=== PATIENT | female | born 1940 | race Caucasian/White ===

== ENCOUNTER 2021-09-05 11:03 | Inpatient (IN) | payer MEDICARE ==
--- NOTE | 2021-09-05 12:36 | XR ---
EXAMINATION TYPE: XR shoulder complete RT DATE OF EXAM: 09/05/2021 CLINICAL HISTORY: Pain after injury. TECHNIQUE: Three views of the right shoulder are obtained. COMPARISON: None. FINDINGS: Osseous structures are demineralized. There is no acute fracture/dislocation evident in the right shoulder. Moderate narrowing and spurring at the acromioclavicular joint. Glenohumeral joint i s preserved. The visualized ribs are intact . IMPRESSION: As above.
[2021-09-05] MEDS ORDERED: KETAMINE 50 MG/ML 10 ML VIAL IM ONE (14:36)
--- NOTE | 2021-09-05 14:38 | ED ---
General Adult HPI - General Chief complaint: Extremity Problem,Nontraumatic Stated complaint: R Shoulder pain Time Seen by Provider: 09/05/21 14:17 Source: patient, family, RN notes reviewed Mode of arrival: ambulatory Limitations: no limitations - History of Present Illness Initial comments: Patient is a pleasant 81-year-old female presenting to the emergency Department with right shoulder pain. Onset of symptoms was earlier this morning. Discomfort has been significant since that time. There was mild improvement with positioning with x-ray. Patient does have history of similar symptoms previously and have it relocated around a week ago. Discomfort greatly increases with any movement. No known trauma. No other area of concern. - Related Data Home Medications Medication Instructions Recorded Confirmed Acetaminophen Tab [Tylenol Tab] 500 mg PO Q6HR PRN 09/05/21 09/05/21 Enoxaparin [Lovenox] 100 mg SQ BID 09/05/21 09/05/21 Isosorbide Mononitrate ER [Imdur] 30 mg PO DAILY 09/05/21 09/05/21 Metoprolol Tartrate [Lopressor] 100 mg PO BID 09/05/21 09/05/21 Spironolactone [Aldactone] 12.5 mg PO DAILY 09/05/21 09/05/21 Allergies Allergy/AdvReac Type Severity Reaction Status Date / Time allopurinol Allergy Anaphylaxis Verified 09/05/21 15:59 amoxicillin [From Amoxil] Allergy Anaphylaxis Verified 09/05/21 15:59 aspirin Allergy Anaphylaxis Verified 09/05/21 15:59 ciprofloxacin [From Cipro] Allergy Anaphylaxis Verified 09/05/21 15:59 clonidine Allergy Anaphylaxis Verified 09/05/21 15:59 codeine Allergy Anaphylaxis Verified 09/05/21 15:59 hydrocodone [From [place]] Allergy Chest Pain Verified 09/05/21 15:59 hydromorphone [From Dilaudid] Allergy Anaphylaxis Verified 09/05/21 15:59 morphine Allergy Anaphylaxis Verified 09/05/21 15:59 propoxyphene Allergy Anaphylaxis Verified 09/05/21 15:59 [From Darvocet-N] Review of Systems ROS Statement: Those systems with pertinent positive or pertinent negative responses have been documented in the HPI. ROS Other: All systems not noted in ROS Statement are negative. Constitutional: Denies: fever Eyes: Denies: eye pain ENT: Denies: ear pain Respiratory: Denies: cough Cardiovascular: Denies: chest pain Endocrine: Denies: fatigue Gastrointestinal: Denies: abdominal pain Genitourinary: Denies: dysuria Musculoskeletal: Reports: as per HPI Skin: Denies: rash Neurological: Denies: weakness Past Medical History Additional Past Medical History / Comment(s): Lupus/ Leukemia History of Any Multi-Drug Resistant Organisms: None Reported Past Surgical History: Orthopedic Surgery Additional Past Surgical History / Comment(s): Shoulder dislocation Past Psychological History: No Psychological Hx Reported Smoking Status: Never smoker Past Alcohol Use History: None Reported Past Drug Use History: None Reported General Exam Limitations: no limitations General appearance: alert Head exam: Present: normocephalic Eye exam: Present: normal appearance Neck exam: Present: normal inspection. Absent: tenderness Respiratory exam: Present: normal lung sounds bilaterally Cardiovascular Exam: Present: regular rate, normal rhythm Expanded Peripheral pulses: 2+: Radial (R) GI/Abdominal exam: Present: soft. Absent: tenderness Extremities exam: Present: tenderness (Mild tenderness right anterior shoulder.), normal capillary refill, other (Distal extremity is neurovascular intact) Back exam: Present: normal inspection. Absent: tenderness Neurological exam: Present: alert. Absent: motor sensory deficit Psychiatric exam: Present: normal affect, normal mood Skin exam: Present: normal color Course Vital Signs 09/05/21 09/05/21 09/05/21 11:51 15:07 16:45 Temperature 97.6 F Pulse Rate 68 77 60 Respiratory 24 16 Rate Blood Pressure 196/98 198/94 O2 Sat by Pulse 96 94 L 92 L Oximetry 09/05/21 09/05/21 18:10 19:43 Temperature Pulse Rate 88 65 Respiratory 16 18 Rate Blood Pressure 190/90 199/93 O2 Sat by Pulse 98 97 Oximetry - Reevaluation(s) Reevaluation #1: 09/05/21 18:11 Case was discussed with practitioner [facility] who did review films and did discuss case with attending physician. He does not feel there is any emergent need for orthopedic intervention. 09/05/21 20:34 Patient reevaluated several times. Patient still complains of discomfort and nausea. Case discussed with Dr. Crawley who does agree to admit his patient for observation with consult with orthopedics and pain medicine Medical Decision Making - Radiology Data Radiology results: report reviewed, image reviewed Disposition Clinical Impression: Intractable pain Disposition: ADMITTED IP TO THIS HOSP Is patient prescribed a controlled substance at d/c from ED?: No Referrals: Christopher Crawley MD [Primary Care Provider] - 1-2 days Time of Disposition: 20:35
--- NOTE | 2021-09-05 16:06 | CT ---
EXAMINATION TYPE: CT shoulder RT wo con DATE OF EXAM: 09/05/2021 COMPARISON: Right shoulder x-ray earlier today HISTORY: right shoulder pain CT DLP: 981.5 mGycm Automated exposure control for dose reduction was used. FINDINGS: No acute fracture or dislocation in the right shoulder. Moderate narrowing and spurring at the acromi oclavicular joint redemonstrated. Nonspecific sclerotic focus in the distal clavicle coronal image 54 favors benign bone island. Mild to moderate narrowing involving the inferior posterior aspect of the glenohumeral joint with mild spurring. Rotator cuff muscle bulk is preserved. Visualized adjacent ribs are intact. Mild parenchymal fibrotic changes in the periphery are seen. Par tial visualization of mild fat stranding anterior proximal humeral level could reflect soft tissue in fection or possible soft tissue ill-defined hematoma if there has been recent trauma axial image 54 f or reference. Correlate clinically. IMPRESSION: As above.
[2021-09-05] MEDS ORDERED: ONDANSETRON 4 MG/2 ML VIAL IM STA (18:22)
[2021-09-05] MEDS ORDERED: ORPHENADRINE 30 MG/ML 2 ML VIAL IM STA (19:24)
[2021-09-05] MEDS ORDERED: ACETAMINOPHEN TAB 325 MG TAB PO PRN (20:36)
[2021-09-05] MEDS ORDERED: NALOXONE 0.4 MG/ML 1 ML VIAL IV PRN (20:36)
[2021-09-05] MEDS ORDERED: ORPHENADRINE 30 MG/ML 2 ML VIAL IVP PRN (21:00)
[2021-09-05 21:38] LABS: Basophils # (A) 0.2 k/uL (0-0.2); Basophils % (A) 2 %; Eosinophils # (A) 0.1 k/uL (0-0.7); Eosinophils % (A) 1 %; HCT 51.1 % (34.0-46.0); HGB 16.6 gm/dL (11.4-16.0); Lymphocytes # (A) 0.9 k/uL (1.0-4.8); Lymphocytes % (A) 10 %; MCH 29.5 pg (25.0-35.0); MCHC 32.5 g/dL (31.0-37.0); MCV 90.7 fL (80.0-100.0); Mean Platelet Volume 8.6; Monocytes # (A) 0.4 k/uL (0-1.0); Monocytes % (A) 4 %; Neutrophils # (A) 7.7 k/uL (1.3-7.7); Neutrophils % (A) 82 %; Platelet Count 332 k/uL (150-450); RBC 5.63 m/uL (3.80-5.40); RDW 15.8 % (11.5-15.5); WBC 9.4 k/uL (3.8-10.6)
[2021-09-05] MEDS ORDERED: diphenhydrAMINE 25 MG CAP PO STA (21:41)
[2021-09-05] MEDS ORDERED: ISOSORBIDE MONONITRATE ER 30 MG TAB.ER.24H PO SCH (21:44)
[2021-09-05 21:52] LABS: ALT 28 U/L (4-34); African American GFR (CKD) >90 (>60 ml/min/1.73 sqM); Anion Gap 9 mmol/L; Blood Urea Nitrogen 12 mg/dL (7-17); Carbon Dioxide 23 mmol/L (22-30); Chloride 104 mmol/L (98-107); Glucose 115 mg/dL (74-99); Non-African American GFR(CKD) 82 (>60 ml/min/1.73 sqM); Sodium 136 mmol/L (137-145)
[2021-09-05 21:53] LABS: INR 1.1 (<1.2); Prothrombin Time 11.3 sec (9.0-12.0)
[2021-09-05 21:55] LABS: AST 39 U/L (14-36); Alkaline Phosphatase 62 U/L (38-126); Potassium 5.6 mmol/L (3.5-5.1); Total Bilirubin 1.5 mg/dL (0.2-1.3); Total Protein 7.7 g/dL (6.3-8.2)
[2021-09-05] MEDS: FAMOTIDINE 20 MG TAB PO SCH (22:15)
[2021-09-05] MEDS: METOPROLOL TARTRATE 50 MG TAB PO SCH (22:15)
[2021-09-05] MEDS ORDERED: ACETAMINOPHEN TAB 500 MG TAB PO PRN (22:23)
[2021-09-06] MEDS: ONDANSETRON 4 MG/2 ML VIAL IVP PRN ×3 (02:43→17:11)
[2021-09-06] MEDS: ENOXAPARIN 100 MG/ML SYRINGE SQ SCH ×2 (08:23→20:59)
[2021-09-06] MEDS ORDERED: SPIRONOLACTONE 25 MG TAB PO SCH (09:00)
[2021-09-06] MEDS: SODIUM CHLORIDE 0.9% 1,000 ML IV SCH ×2 (09:10→21:05)
[2021-09-06] MEDS: METOPROLOL TARTRATE 50 MG TAB PO SCH ×2 (09:11→21:00)
[2021-09-06] MEDS: ISOSORBIDE MONONITRATE ER 30 MG TAB.ER.24H PO SCH (09:11)
[2021-09-06] MEDS: FAMOTIDINE 20 MG TAB PO SCH ×2 (09:11→21:00)
[2021-09-06] MEDS: LIDOCAINE 5% PATCH TOPICAL SCH (09:12)
[2021-09-06] MEDS ORDERED: KETOROLAC 15 MG/ML 1 ML VIAL IVP PRN (10:24)
--- NOTE | 2021-09-06 10:24 | P.HPIM ---
History of Present Illness H&P Date: 09/06/21 HISTORY OF PRESENT ILLNESS This is an 81-year-old female patient of Dr. 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 Patient states that she was sitting watching TV and had sudden onset of pain in her right shoulder that started on Saturday. Patient denies having any recent falls or injuries and no repetitive movement of the right shoulder. She denies any fever or chills. She went to [facility] was told she had a dislocation and they put the shoulder back into place and gave her a sling and instructed her to follow-up with Dr. Stuart in [place]. That time she also developed nausea and vomiting and pain across her kidneys. She also mentions concern that she felt distorted. She states the pain in her right shoulder was not any better and she ended up coming into [facility] emergency center for evaluation. She was found to be afebrile, heart rate 68, blood pressure 196/98, pulse ox 96% on room air. WBC 9.4, hemoglobin 16.6 and platelet count 332. INR 1.1. Sodium 136, potassium 5.6, chloride 104, CO2 23, BUN 12 and creatinine 0.66. Glucose 115. Calcium 9. Total bilirubin 1.5, AST 39, ALT 28, and phosphatase 62. Total protein 7.7 and albumin 4.0. Right shoulder x-ray shows no acute fracture or dislocation. Moderate narrowing and spurring at the acromial clavicle joint. CAT scan of the right shoulder revealed no acute fracture or dislocation. Moderate narrowing and spurring at the acromioclavicular joint. Mild to moderate narrowing involving the inferior posterior aspect of the glenohumeral joint with mild spurring. Rotator cuff muscle bulk is preserved. Partial visualization of mild fat stranding anterior proximal humeral level could reflect soft tissue infection or possible soft tissue ill-defined hematoma if there is been recent trauma. Patient was placed on the observation unit and consults for orthopedics and pain management. REVIEW OF SYSTEMS Constitutional: No fever, no chills, no night sweats. No weight change. No weakness, fatigue or lethargy. No daytime sleepiness. EENT: No headache. No blurred vision or double vision, no loss of vision. No loss of Hearing, no ringing in the ears, no dizziness. No nasal drainage or congestion. No epistaxis. No sore throat. Lungs: No shortness of breath, cough, no sputum production. No wheezing. Cardiovascular: No chest pain, no lower extremity edema. No palpitations. No paroxysmal nocturnal dyspnea. No orthopnea. No lightheadedness or dizziness. No syncopal episodes. Abdominal: No abdominal pain. Reports nausea, reports vomiting. No diarrhea. No constipation. No bloody or tarry stools. No loss of appetite. Genitourinary: No dysuria, increased frequency, urgency. No urinary retention. Reports pain across lower back area. Musculoskeletal: No myalgias. No muscle weakness, no gait dysfunction, no frequent falls. No back pain. No neck pain. Reports right shoulder pain. Integumentary: No wounds, no lesions. No rash or pruritus. No unusual bruising. No change in hair or nails. Neurologic: No aphasia. No facial droop. No change in mentation. No head injury. No headache. No paralysis. No paresthesia. Psychiatric: No depression. No anxiety. No mood swings. Endocrine: No abnormal blood sugars. No weight change. No excessive sweating or thirst. No cold intolerance. SOCIAL HISTORY Patient is a lifelong nonsmoker, no alcohol use, no marijuana or illicit drug use. She lives at home with her of 60 years. FAMILY HISTORY Mother at age 78 with history of Parkinson's. Father at age 63 from pneumonia. Patient has 3 siblings. One sister has from leukemia and one sister comes sudden infant syndrome. Patient has one brother is living at age 84. Patient has 3 children one daughter has passed from ovarian cancer and one son living has COPD.. PHYSICAL EXAMINATION Gen: This is an 81-year-old female. Patient is resting in bed appears to be uncomfortable due to shoulder pain and complaints of nausea. HEENT: Head is atraumatic, normocephalic. Pupils equal, round. Sclerae is an icteric. NECK: Supple. No JVD. No lymphadenopathy. No thyromegaly. LUNGS: Clear to auscultation. No wheezes or rhonchi. No intercostal retractions. HEART: Regular rate and rhythm. No murmur. ABDOMEN: Soft. Bowel sounds are present. No masses. No tenderness. EXTREMITIES: No pedal edema. No calf tenderness. Sling in place to the right upper extremity. NEUROLOGICAL: Patient is awake, alert and oriented x3. Cranial nerves 2 through 12 are grossly intact. ASSESSMENT AND PLAN 1. Right shoulder pain with reported dislocation. Orthopedic consult, continue sling, PT and OT evaluations, lidocaine patch to the right shoulder. 2. Intractable nausea and vomiting of unclear etiology. Continue Zofran 4 mg IV push every 8 hours, start patient on IV fluids or 0.9 normal saline at 75 mL per hour, discontinue Aldactone. 3. Flank/lumbar pain. Obtain urinalysis and x-ray of the lumbar spine. 4. History of PE and DVT. Continue patient on Lovenox 100 mg subcu twice daily. 5. Hypertension. Continue Lopressor 100 mg twice daily. 6. Coronary artery disease. Continue Imdur 30 mg daily and Lopressor. 7. Gastroesophageal reflux disease and GI prophylaxis. Continue Pepcid 20 mg twice daily. 8. Polycythemia, stable. 9. Multiple drug ALLERGIES. Cautious use of new medications. 10. DVT prophylaxis. Lovenox. Patient placed on the observation unit. DISCHARGE PLAN Home. Impression and plan of care have been directed as dictated by the signing physician. Angelina Wang nurse practitioner acting as scribe for signing physic rashida. Past Medical History Additional Past Medical History / Comment(s): Lupus/ Leukemia History of Any Multi-Drug Resistant Organisms: None Reported Past Surgical History: Orthopedic Surgery Additional Past Surgical History / Comment(s): Shoulder dislocation Past Psychological History: No Psychological Hx Reported Smoking Status: Never smoker Past Alcohol Use History: None Reported Past Drug Use History: None Reported Medications and Allergies Home Medications Medication Instructions Recorded Confirmed Type Acetaminophen Tab [Tylenol Tab] 500 mg PO Q6HR PRN 09/05/21 09/05/21 History Enoxaparin [Lovenox] 100 mg SQ BID 09/05/21 09/05/21 History Isosorbide Mononitrate ER [Imdur] 30 mg PO DAILY 09/05/21 09/05/21 History Metoprolol Tartrate [Lopressor] 100 mg PO BID 09/05/21 09/05/21 History Spironolactone [Aldactone] 12.5 mg PO DAILY 09/05/21 09/05/21 History Allergies Allergy/AdvReac Type Severity Reaction Status Date / Time allopurinol Allergy Anaphylaxis Verified 09/05/21 15:59 amoxicillin [From Amoxil] Allergy Anaphylaxis Verified 09/05/21 15:59 aspirin Allergy Anaphylaxis Verified 09/05/21 15:59 ciprofloxacin [From Cipro] Allergy Anaphylaxis Verified 09/05/21 15:59 clonidine Allergy Anaphylaxis Verified 09/05/21 15:59 codeine Allergy Anaphylaxis Verified 09/05/21 15:59 hydrocodone [From [place]] Allergy Chest Pain Verified 09/05/21 15:59 hydromorphone [From Dilaudid] Allergy Anaphylaxis Verified 09/05/21 15:59 morphine Allergy Anaphylaxis Verified 09/05/21 15:59 propoxyphene Allergy Anaphylaxis Verified 09/05/21 15:59 [From Darvocet-N] Physical Exam Vitals: Vital Signs Temp Pulse Pulse Resp BP BP Pulse Ox 09/06/21 06:58 98.3 F 68 18 178/84 94 L 09/06/21 03:10 98.3 F 58 L 18 155/69 92 L 09/05/21 23:53 97.3 F L 62 18 170/77 94 L 09/05/21 23:03 61 14 152/76 09/05/21 21:28 67 18 209/98 95 09/05/21 19:43 65 18 199/93 97 09/05/21 18:10 88 16 190/90 98 09/05/21 16:45 60 16 198/94 92 L 09/05/21 15:07 77 94 L 09/05/21 11:51 97.6 F 68 24 196/98 96 Intake and Output 09/05/21 09/06/21 09/06/21 22:59 06:59 14:59 Other: # Voids 2 1 Weight 97.522 kg Results CBC & Chem 7: 09/05/21 21:31 09/05/21 21:31 Labs: Abnormal Lab Results - Last 24 Hours (Table) 09/05/21 09/05/21 Range/Units 21:31 21:31 RBC 5.63 H (3.80-5.40) m/uL Hgb 16.6 H (11.4-16.0) gm/dL Hct 51.1 H (34.0-46.0) % RDW 15.8 H (11.5-15.5) % Lymphocytes # 0.9 L (1.0-4.8) k/uL Sodium 136 L (137-145) mmol/L Potassium 5.6 H (3.5-5.1) mmol/L Glucose 115 H (74-99) mg/dL Total Bilirubin 1.5 H (0.2-1.3) mg/dL AST 39 H (14-36) U/L
[2021-09-06] MEDS ORDERED: diphenhydrAMINE 50 MG/ML 1 ML VIAL IVP PRN (10:25)
--- NOTE | 2021-09-06 10:29 | XR ---
Lumbar spine HISTORY: Pain 3 views of the lumbar spine, no comparisons There are vascular calcifications noted within the aorta iliac distribution. Possible splenic artery calcifications or calcified diverticula noted incidentally. Lumbar vertebral bodies show preserved height. Bone mineralization is reduced. There is an anterolist hesis grade 1 L4-5 with associated loss of disc height and vacuum phenomenon. Loss of disc height als o present L5-S1, there is multilevel spondylosis. Sclerosis in the posterior elements is consistent w ith facet arthropathy. IMPRESSION: Degenerative disc disease, osteopenia, facet arthropathy and additional findings above.
[2021-09-06 11:56] LABS: Appearance,Urine Clear (Clear); Bacteria,Urine Rare /hpf; Bilirubin,Urine Negative (Negative); Blood,Urine Trace (Negative); Color,Urine Yellow; Glucose,Urine (UA) Negative (Negative); Ketones,Urine Trace (Negative); Leukocyte Esterase,Urine Small (Negative); Mucus,Urine Rare /hpf; Nitrite,Urine Negative (Negative); PH, Urine 5.5 (5.0-8.0); Protein,Urine 1+ (Negative); RBC,Urine 3 /hpf (0-5); Specific Gravity,Urine 1.024 (1.001-1.035); Squamous Epithelial Cell,Urine <1 /hpf (0-4); Urobilinogen,Urine <2.0 mg/dL (<2.0); WBC,Urine 12 /hpf (0-5)
[2021-09-06] MEDS ORDERED: SCOPOLAMINE 1 MG/72 HR PATCH TRANSDERM SCH (12:15)
[2021-09-06] MEDS ORDERED: tiZANidine 4 MG TAB PO PRN (14:56)
--- NOTE | 2021-09-06 16:04 | P.CNOR ---
History of Present Illness - [facility] Consult date: 09/06/21 Consult reason: joint pain History of present illness: Patient seen at bedside this morning in consultation for right shoulder pain. She states that she developed right shoulder pain last Saturday while watching TV. She denies injury or trauma. She states she went to [facility] and they reduced her "dislocated" shoulder. She was to f/u in office but returned to the ED yesterday with continued pain. Xrays and CT done through ED showed no dislocation or fracture. She denies numbness or radicular symptoms. She has no other current complaints Review of Systems All systems: negative Constitutional: Denies chills, Denies fever Eyes: denies blurred vision, denies pain Ears, nose, mouth and throat: Denies headache, Denies sore throat Cardiovascular: Denies chest pain, Denies shortness of breath Respiratory: Denies cough Gastrointestinal: Denies abdominal pain, Denies diarrhea, Denies nausea, Denies vomiting Genitourinary: Denies dysuria, Denies hematuria Musculoskeletal: Denies myalgias Integumentary: Denies pruritus, Denies rash Neurological: Denies numbness, Denies weakness Psychiatric: Denies anxiety, Denies depression Endocrine: Denies fatigue, Denies weight change Past Medical History Additional Past Medical History / Comment(s): Lupus/ Leukemia History of Any Multi-Drug Resistant Organisms: None Reported Past Surgical History: Orthopedic Surgery Additional Past Surgical History / Comment(s): Shoulder dislocation Past Psychological History: No Psychological Hx Reported Smoking Status: Never smoker Past Alcohol Use History: None Reported Past Drug Use History: None Reported Medications and Allergies Home Medications Medication Instructions Recorded Confirmed Type Acetaminophen Tab [Tylenol Tab] 500 mg PO Q6HR PRN 09/05/21 09/05/21 History Enoxaparin [Lovenox] 100 mg SQ BID 09/05/21 09/05/21 History Isosorbide Mononitrate ER [Imdur] 30 mg PO DAILY 09/05/21 09/05/21 History Metoprolol Tartrate [Lopressor] 100 mg PO BID 09/05/21 09/05/21 History Spironolactone [Aldactone] 12.5 mg PO DAILY 09/05/21 09/05/21 History Allergies Allergy/AdvReac Type Severity Reaction Status Date / Time allopurinol Allergy Anaphylaxis Verified 09/05/21 15:59 amoxicillin [From Amoxil] Allergy Anaphylaxis Verified 09/05/21 15:59 aspirin Allergy Anaphylaxis Verified 09/05/21 15:59 ciprofloxacin [From Cipro] Allergy Anaphylaxis Verified 09/05/21 15:59 clonidine Allergy Anaphylaxis Verified 09/05/21 15:59 codeine Allergy Anaphylaxis Verified 09/05/21 15:59 hydrocodone [From [place]] Allergy Chest Pain Verified 09/05/21 15:59 hydromorphone [From Dilaudid] Allergy Anaphylaxis Verified 09/05/21 15:59 morphine Allergy Anaphylaxis Verified 09/05/21 15:59 propoxyphene Allergy Anaphylaxis Verified 09/05/21 15:59 [From Darvocet-N] Physical Examination Inspection of right shoulder shows no deformity or wounds. There is echymoses at the right bicep. The shoulder is not hot or red. She is tender at the bicipital groove and biceps. She has mild pain with passive ROM of the shoulder in all marks. She has pain with resisted flexion of the right bicep. Neurovascular status is intact throughout right upper extremity with motor and sensation. 2+ radial pulse and less than 2 sec cap refill present. Results - Labs Labs: Abnormal Lab Results - Last 24 Hours (Table) 09/05/21 09/05/21 09/06/21 Range/Units 21:31 21:31 09:45 RBC 5.63 H (3.80-5.40) m/uL Hgb 16.6 H (11.4-16.0) gm/dL Hct 51.1 H (34.0-46.0) % RDW 15.8 H (11.5-15.5) % Lymphocytes # 0.9 L (1.0-4.8) k/uL Sodium 136 L (137-145) mmol/L Potassium 5.6 H (3.5-5.1) mmol/L Glucose 115 H (74-99) mg/dL Total Bilirubin 1.5 H (0.2-1.3) mg/dL AST 39 H (14-36) U/L Urine Protein 1+ H (Negative) Urine Ketones Trace H (Negative) Urine Blood Trace H (Negative) Ur Leukocyte Esterase Small H (Negative) Urine WBC 12 H (0-5) /hpf Urine Bacteria Rare H (None) /hpf Urine Mucus Rare H (None) /hpf H & H 04/26/22 Range/Units 21:31 Hgb 16.6 H (11.4-16.0) gm/dL Hct 51.1 H (34.0-46.0) % Coagulation 09/05/21 Range/Units 21:31 INR 1.1 (<1.2) Result Diagrams: 09/05/21 21:31 09/05/21 21:31 - Diagnostic results Shoulder x-ray: report reviewed, image reviewed Shoulder CT: report reviewed, image reviewed Assessment and Plan (1) Shoulder pain Narrative/Plan: She likely has a proximal bicep tendon tear and shoulder arthropathy. No plans for immediate surgical intervention. She may use sling prn for comfort. We will order MRI of right shoulder. Ice to shoulder prn and pain management. She may f/u as outpatient and will continue to follow. Current Visit: Yes Status: Acute Priority: Medium Code(s): M25.519 - PAIN IN UNSPECIFIED SHOULDER SNOMED Code(s): 53847534 (2) Biceps tendon tear Current Visit: Yes Status: Acute Priority: Medium Code(s): S46.219A - STRAIN OF MUSC/FASC/TEND PRT BICEPS, UNSP ARM, INIT SNOMED Code(s): 261493282 Time with Patient: Less than 30
[2021-09-07] MEDS: ENOXAPARIN 100 MG/ML SYRINGE SQ SCH (09:13)
[2021-09-07] MEDS: LIDOCAINE 5% PATCH TOPICAL SCH (09:14)
[2021-09-07] MEDS: ONDANSETRON 4 MG/2 ML VIAL IVP PRN (09:15)
[2021-09-07] MEDS: FAMOTIDINE 20 MG TAB PO SCH (09:15)
[2021-09-07] MEDS: METOPROLOL TARTRATE 50 MG TAB PO SCH (09:16)
[2021-09-07] MEDS: ISOSORBIDE MONONITRATE ER 30 MG TAB.ER.24H PO SCH (09:16)
[2021-09-07 12:03] LABS: ALT 22 U/L (4-34); AST 30 U/L (14-36); African American GFR (CKD) 83 (>60 ml/min/1.73 sqM); Albumin 3.6 g/dL (3.5-5.0); Albumin/Globulin Ratio 1.1; Alkaline Phosphatase 56 U/L (38-126); Anion Gap 7 mmol/L; Blood Urea Nitrogen 12 mg/dL (7-17); Calcium 8.4 mg/dL (8.4-10.2); Carbon Dioxide 22 mmol/L (22-30); Chloride 104 mmol/L (98-107); Globulin 3.4 g/dL; Glucose 103 mg/dL (74-99); Non-African American GFR(CKD) 72 (>60 ml/min/1.73 sqM); Sodium 133 mmol/L (137-145); Total Bilirubin 1.4 mg/dL (0.2-1.3)
[2021-09-07 12:04] LABS: Potassium 4.7 mmol/L (3.5-5.1)
--- NOTE | 2021-09-07 12:26 | MR ---
EXAMINATION TYPE: MR shoulder RT wo con DATE OF EXAM: 09/07/2021 COMPARISON: CT and plain film shoulder 09/05/2021 HISTORY: Right shoulder pain, bruising, no injury TECHNIQUE: Multiplanar, multisequence imaging of the right shoulder is performed without contrast. FINDINGS: Rotator Cuff: Partial full-thickness tear suspected of the supraspinatus tendon, sagittal image 25, c oronal image #15 Acromioclavicular Joint: Arthropathy changes present. There is mass effect on the musculotendinous ju nction of supraspinatus, distal acromial spur noted Glenohumeral Joint: Intact Labrum: The labrum appears grossly intact given limitation of non-arthrogram study. Biceps Tendon: The long head of biceps is in normal location within bicipital groove. Bone marrow signal: Extensive marrow signal change suggestive of edema is noted. Other: Diffuse increased signal in T2-weighted sequences involving the subcutaneous tissues, musculat ure about the right shoulder. Crescentic area of intermediate signal on T1, low signal on T2 is prese nt anterior to the humeral head measuring approximately 3.2 cm in cephalad to caudal dimension by 1 c m in AP dimension by 4 cm in transverse dimension. There is a small joint effusion present. IMPRESSION: Findings may be posttraumatic with focal hematoma, soft tissue edema, partial tear the rotator cuff m ay be chronic, correlate for impingement. Infection not excluded, correlate, follow-up as indicated
[2021-09-07 13:36] VITALS: BP 195/81; PULSE 61; RESP 14; TEMP 97.5
--- NOTE | 2021-09-07 14:20 | P.DS ---
Providers Date of admission: 09/07/21 09:25 Expected date of discharge: 09/07/21 Attending physician: Christopher Crawley Consults: 09/05/21 20:36 Consult Physician Routine Consulting Provider: Edith Emanuel Consult Reason/Comments: Intractable shoulder pain. Possible injections Do you want consulting provider notified?: Yes Consult Physician Routine Consulting Provider: Hayden Rodriguez Consult Reason/Comments: Intractable shoulder pain Do you want consulting provider notified?: Yes Primary care physician: Christopher Misb[facility] Course: HISTORY OF PRESENT ILLNESS This is an 81-year-old female patient of Dr. 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 Patient states that she was sitting watching TV and had sudden onset of pain in her right shoulder that started on Saturday. Patient denies having any recent falls or injuries and no repetitive movement of the right shoulder. She denies any fever or chills. She went to [facility] was told she had a dislocation and they put the shoulder back into place and gave her a sling and instructed her to follow-up with Dr. Stuart in [place]. That time she also developed nausea and vomiting and pain across her kidneys. She also mentions concern that she felt distorted. She states the pain in her right shoulder was not any better and she ended up coming into [facility] emergency center for evaluation. She was found to be afebrile, heart rate 68, blood pressure 196/98, pulse ox 96% on room air. WBC 9.4, hemoglobin 16.6 and platelet count 332. INR 1.1. Sodium 136, potassium 5.6, chloride 104, CO2 23, BUN 12 and creatinine 0.66. Glucose 115. Calcium 9. Total bilirubin 1.5, AST 39, ALT 28, and phosphatase 62. Total protein 7.7 and albumin 4.0. Right shoulder x-ray shows no acute fracture or dislocation. Moderate narrowing and spurring at the acromial clavicle joint. CAT scan of the right shoulder revealed no acute fracture or dislocation. Moderate narrowing and spurring at the acromioclavicular joint. Mild to moderate narrowing involving the inferior posterior aspect of the glenohumeral joint with mild spurring. Rotator cuff muscle bulk is preserved. Partial visualization of mild fat stranding anterior proximal humeral level could reflect soft tissue infection or possible soft tissue ill-defined hematoma if there is been recent trauma. Patient was placed on the observation unit and consults for orthopedics and pain management. 09/07: MRI of the right shoulder revealed posttraumatic with focal hematoma, soft tissue edema, partial tear of the rotator cuff may be chronic, correlate for impingement. Infection not excluded. Patient has been seen by orthopedics with recommendations with no plan for stress as surgical intervention, maintain sling for comfort ice and follow-up outpatient. Lumbar x-ray revealed degenerative disc disease, osteopenia, facet arthropathy. Patient is afebrile, heart rate 61, blood pressure 195/81, pulse ox 94% on room air. Repeat blood work reveals sodium 133, potassium 4.7, creatinine 0.77. Blood sugar 103. Urine culture is in progress. Patient will be discharged today in stable condition. DISCHARGE DIAGNOSES 1. Right shoulder pain secondary to proximal bicep tendon tear and shoulder arthropathy. 2. Intractable nausea and vomiting of unclear etiology. 3. Flank/lumbar pain secondary to degenerative disc disease. 4. History of PE and DVT. 5. Hypertension. 6. Coronary artery disease. 7. Gastroesophageal reflux disease 8. Polycythemia, stable. 9. Multiple drug ALLERGIES. DISCHARGE PLAN Home with [facility]. Greater than 35 minutes was utilized and coordinating patient's discharge. Impression and plan of care have been directed as dictated by the signing physician. Angelina Wang nurse practitioner acting as scribe for signing physician. Plan - Discharge Summary New Discharge Prescriptions: New Scopolamine 1 mg/72 Hr Patch [TransDerm Scop] 1 patch TRANSDERM Q72H #3 patch tiZANidine [Zanaflex] 4 mg PO TID PRN #30 tab PRN Reason: Muscle Spasticity Lidocaine 5% Patch [Lidoderm 5% Patch] 1 patch TOPICAL DAILY #10 patch Continue Spironolactone [Aldactone] 12.5 mg PO DAILY Metoprolol Tartrate [Lopressor] 100 mg PO BID Isosorbide Mononitrate ER [Imdur] 30 mg PO DAILY Enoxaparin [Lovenox] 100 mg SQ BID Acetaminophen Tab [Tylenol] 500 mg PO Q6HR PRN PRN Reason: Pain Or Fever > 100.5 Discharge Medication List Acetaminophen Tab [Tylenol] 500 mg PO Q6HR PRN 09/05/21 [History] Enoxaparin [Lovenox] 100 mg SQ BID 09/05/21 [History] Isosorbide Mononitrate ER [Imdur] 30 mg PO DAILY 09/05/21 [History] Metoprolol Tartrate [Lopressor] 100 mg PO BID 09/05/21 [History] Spironolactone [Aldactone] 12.5 mg PO DAILY 09/05/21 [History] Lidocaine 5% Patch [Lidoderm 5% Patch] 1 patch TOPICAL DAILY #10 patch 09/07/21 [Rx] Scopolamine 1 mg/72 Hr Patch [TransDerm Scop] 1 patch TRANSDERM Q72H #3 patch 09/07/21 [Rx] tiZANidine [Zanaflex] 4 mg PO TID PRN #30 tab 09/07/21 [Rx] Follow up Appointment(s)/Referral(s): [facility], [NON-STAFF] - 1-2 Days Christopher Crawley MD [Primary Care Provider] - 1-2 days Hayden Rodriguez MD [STAFF PHYSICIAN] - 1 Week Activity/Diet/Wound Care/Special Instructions: Sling prn for comfort rest and ice to shoulder prn F/U in office with Dr. Rodriguez/Giacomo Okeefe PA-C Discharge Disposition: HOME WITH HOME HEALTH SERVICES
== END 2021-09-07 15:33 | disposition home health service (06) | DRG 558 ==
LOC: EC 11:03 → 6NMEDSUR 20:36 → OBSVTOIN 09-07 09:25
PROVIDERS: ADMIT Internal Medicine Geriatric Medicine; ATTEND Internal Medicine Geriatric Medicine
DX: M75.110 Incomplete rotator cuff tear or rupture of unspecified shoulder, not specified as traumatic (principal); M51.36 Other intervertebral disc degeneration, lumbar region; M47.819 Spondylosis without myelopathy or radiculopathy, site unspecified; M85.80 Other specified disorders of bone density and structure, unspecified site; S46.219A Strain of muscle, fascia and tendon of other parts of biceps, unspecified arm, initial encounter; D75.1 Secondary polycythemia; I10 Essential (primary) hypertension; M19.90 Unspecified osteoarthritis, unspecified site; I25.10 Atherosclerotic heart disease of native coronary artery without angina pectoris; K21.9 Gastro-esophageal reflux disease without esophagitis; Z28.310 Unvaccinated for COVID-19; G89.29 Other chronic pain; R11.2 Nausea with vomiting, unspecified; Z80.6 Family history of leukemia; Z79.899 Other long term (current) drug therapy; M32.9 Systemic lupus erythematosus, unspecified; Z85.6 Personal history of leukemia; Z82.0 Family history of epilepsy and other diseases of the nervous system; Z85.42 Personal history of malignant neoplasm of other parts of uterus; Z86.711 Personal history of pulmonary embolism; Z86.718 Personal history of other venous thrombosis and embolism; Z86.73 Personal history of transient ischemic attack (TIA), and cerebral infarction without residual deficits; Z88.6 Allergy status to analgesic agent; Z88.1 Allergy status to other antibiotic agents; Z88.5 Allergy status to narcotic agent; Z88.8 Allergy status to other drugs, medicaments and biological substances; Z83.6 Family history of other diseases of the respiratory system; Z84.82 Family history of sudden infant death syndrome; Z98.890 Other specified postprocedural states; Z79.01 Long term (current) use of anticoagulants
CPT/HCPCS: 72100; 80053; 81001; 85025; 85610; 87086; 96372; 99285

== ENCOUNTER 2023-01-06 08:28 | Emergency (ER) | payer MEDICARE, OTHER ==
--- NOTE | 2023-01-06 09:00 | ED ---
General Adult HPI - General Chief complaint: Head Injury Stated complaint: Fall Time Seen by Provider: 01/06/23 08:32 Source: patient Mode of arrival: EMS Limitations: no limitations - History of Present Illness Initial comments: Dictation was produced using [employer] dictation software. please excuse any grammatical, word or spelling errors. Chief Complaint: 82-year-old female presents to ER after head injury History of Present Illness: Patient is an 82-year-old female she presents to the emergency department after head injury. Patient brought in by EMS states that she struck her head on the corner of a wall. Unknown if there was any loss of consciousness. Son at the bedside states that the event occurred approximately 6:30 PM. Patient is a poor historian. Son reports that patient at baseline is alert and oriented 3-4. EMS states the patient is in 1. Patient takes Lovenox for anticoagulation The ROS documented in this emergency department record has been reviewed and confirmed by me. Those systems with pertinent positive or negative responses have been documented in the HPI. All other systems are other negative and/or noncontributory. - Related Data Home Medications Medication Instructions Recorded Confirmed Acetaminophen Tab [Tylenol] 500 mg PO Q6HR PRN 09/05/21 09/05/21 Enoxaparin [Lovenox] 100 mg SQ BID 09/05/21 09/05/21 Isosorbide Mononitrate ER [Imdur] 30 mg PO DAILY 09/05/21 09/05/21 Metoprolol Tartrate [Lopressor] 100 mg PO BID 09/05/21 09/05/21 Spironolactone [Aldactone] 12.5 mg PO DAILY 09/05/21 09/05/21 Previous Rx's Medication Instructions Recorded Lidocaine 5% Patch [Lidoderm 5% 1 patch TOPICAL DAILY #10 patch 09/07/21 Patch] Scopolamine 1 mg/72 Hr Patch 1 patch TRANSDERM Q72H #3 patch 09/07/21 [TransDerm Scop] tiZANidine [Zanaflex] 4 mg PO TID PRN #30 tab 09/07/21 Allergies Allergy/AdvReac Type Severity Reaction Status Date / Time allopurinol Allergy Anaphylaxis Verified 09/05/21 15:59 amoxicillin [From Amoxil] Allergy Anaphylaxis Verified 09/05/21 15:59 aspirin Allergy Anaphylaxis Verified 09/05/21 15:59 ciprofloxacin [From Cipro] Allergy Anaphylaxis Verified 09/05/21 15:59 clonidine Allergy Anaphylaxis Verified 09/05/21 15:59 codeine Allergy Anaphylaxis Verified 09/05/21 15:59 hydrocodone [From [place]] Allergy Chest Pain Verified 09/05/21 15:59 hydromorphone [From Dilaudid] Allergy Anaphylaxis Verified 09/05/21 15:59 morphine Allergy Anaphylaxis Verified 09/05/21 15:59 propoxyphene Allergy Anaphylaxis Verified 09/05/21 15:59 [From Darvocet-N] Review of Systems ROS Statement: Those systems with pertinent positive or pertinent negative responses have been documented in the HPI. ROS Other: All systems not noted in ROS Statement are negative. Past Medical History Additional Past Medical History / Comment(s): Lupus/ Leukemia History of Any Multi-Drug Resistant Organisms: None Reported Past Surgical History: Orthopedic Surgery Additional Past Surgical History / Comment(s): Shoulder dislocation Past Psychological History: No Psychological Hx Reported Smoking Status: Never smoker Past Alcohol Use History: None Reported Past Drug Use History: None Reported General Exam - General Exam Comments Initial Comments: PHYSICAL EXAM: General Impression: Alert and oriented x1/4, not in acute distress HEENT: Occipital hematoma with 5 mm vertical scalp laceration, extra-ocular movements intact, pupils equal and reactive to light bilaterally, mucous membranes moist. Cardiovascular: Heart regular rate and rhythm Chest: Able to complete full sentences, no retractions, no tachypnea Abdomen: abdomen soft, non-tender, non-distended, no organomegaly Musculoskeletal: Pulses present and equal in all extremities, no peripheral edema Motor: no focal deficits noted Neurological: CN II-XII grossly intact, no focal motor or sensory deficits noted Skin: Intact with no visualized rashes Psych: Normal affect and mood Limitations: no limitations Course Vital Signs 01/06/23 08:43 Temperature 98.7 F Pulse Rate 83 Respiratory 20 Rate Blood Pressure 197/115 O2 Sat by Pulse 95 Oximetry - Reevaluation(s) Reevaluation #1: 01/06/23 08:59 Activated level II trauma due to physicians discretion. She is on anti- coagulation however did not have a fall greater than ground-level however she has history of anticoagulation use with head injury and acute changes in mentation Medical Decision Making - Medical Decision Making Was pt. sent in by a medical professional or institution (Dr., PA, ACCOUNT REPRESENTATIVE, urgent care, hospital, or snf...) When possible be specific @ -No Did you speak to anyone other than the patient for history (EMS, parent, family, police, friend...)? What history was obtained from this source @ -No Did you review nursing and triage notes (agree or disagree)? Why? @ -I reviewed and agree with nursing and triage notes Were old charts reviewed (outside hosp., previous admission, EMS record, old EKG, old radiological studies, urgent care reports/EKG's, snf records)? Report findings @ -No old charts were reviewed Differential Diagnosis (chest pain, altered mental status, abdominal pain women, abdominal pain men, vaginal bleeding, musculoskeletal, weakness, fever, dyspnea, syncope, headache, dizziness, GI bleed, back pain, seizure, CVA, palpatations, mental health)? @ -not applicable EKG interpreted by me (3pts min.). @ -My EKG interpretation: Ventricular rate 83, A. fib, QRS 86, QTC 420. No GA prolongation, no QTC prolongation, no ST or T-wave changes noted. Overall, this EKG is unremarkable X-rays interpreted by me (1pt min.). @ -Chest x-ray shows venous congestion, post x-ray shows no fractures CT interpreted by me (1pt min.). @ -CT scan of the head and C-spine shows acute interhemispheric subdural hematoma. Cervical spine x-ray is unremarkable U/S interpreted by me (1pt. min.). @ -None done What testing was considered but not performed or refused? (CT, X-rays, U/S, labs)? Why? @ -None What meds were considered but not given or refused? Why? @ -None Did you discuss the management of the patient with other professionals (professionals i.e. ANIBAL Payan, ACCOUNT REPRESENTATIVE, lab, RT, psych nurse, rn social services, canoe builder, teacher, patrol community service officer, dependency case manager)? Give summary @ -Case discussed with Dr. Jailene Carter for trauma transfer Was smoking cessation discussed for >3mins.? @ -No Was critical care preformed (if so, how long)? @ -33 minutes Were there social determinants of health that impacted care today? How? (Homelessness, low income, unemployed, alcoholism, drug addiction, transportation, low edu. Level, literacy, decrease access to med. care, correction, rehab)? @ -No Was there de-escalation of care discussed even if they declined (Discuss DNR or withdrawal of care, Hospice)? DNR status @ -No What co-morbidities impacted this encounter? (DM, HTN, Smoking, COPD, CAD, Cancer, CVA, ARF, Chemo, Hep., AIDS, mental health diagnosis, sleep apnea, morbid obesity)? @ -None Was patient admitted / discharged? Hospital course, mention meds given and route, prescriptions, significant lab abnormalities, going to OR and other pertinent info. @ -82Year-old male presents emergency arm for head injury. Patient is acti vated level II trauma for head injury and acute medication changes. Vital signs upon arrival shows blood pressure 197/115, rest of vital signs within acceptable limits. Laboratory evaluation shows INR 1.3. Rest of labs are within acceptable limits. Computed tomography scan of brain shows acute i nterhemispheric subdural hematoma. Patient was to be transferred. Patient has traumatic intracranial bleed as opposed to a bleed secondary to ruptured aneurysm. No indication for stroke neurology intervention at this time. Patient has an INR 1.3 and had received a dose of Lovenox. Patient not a candidate for medication reversal and a coagulation medications. Start on labetalol for agressive blood pressure management Undiagnosed new problem with uncertain prognosis? @ -No Drug Therapy requiring intensive monitoring for toxicity (Heparin, Nitro, Insulin, Cardizem)? @ -No Were any procedures done? @ -Laceration repair Diagnosis/symptom? Acute, or Chronic, or Acute on Chronic? Uncomplicated (without systemic symptoms) or Complicated (systemic symptoms)? @ - Acute traumatic subdural hematoma Side effects of treatment? @ -No Exacerbation, Progression, or Severe Exacerbation? @ -No Poses a threat to life or bodily function? How? (Chest pain, [place], [place], pneumonia, PE, COPD, DKA, ARF, appy, cholecystitis, CVA, Diverticulitis, Homicidal, Edgar icidal, threat to staff... and all critical care pts) @ -yes - Lab Data Result diagrams: 01/06/23 08:56 01/06/23 08:56 Lab Results 01/06/23 01/06/23 01/06/23 Range/Units 08:56 08:56 08:56 WBC 10.1 (3.8-10.6) k/uL RBC 6.14 H (3.80-5.40) m/uL Hgb 17.9 H (11.4-16.0) gm/dL Hct 54.3 H (34.0-46.0) % MCV 88.5 (80.0-100.0) fL MCH 29.2 (25.0-35.0) pg MCHC 33.0 (31.0-37.0) g/dL RDW 15.3 (11.5-15.5) % Plt Count 367 (150-450) k/uL MPV 9.4 Neutrophils % 85 % Lymphocytes % 5 % Monocytes % 7 % Eosinophils % 1 % Basophils % 0 % Neutrophils # 8.7 H (1.3-7.7) k/uL Lymphocytes # 0.5 L (1.0-4.8) k/uL Monocytes # 0.7 (0-1.0) k/uL Eosinophils # 0.1 (0-0.7) k/uL Basophils # 0.0 (0-0.2) k/uL PT 13.2 H (9.0-12.0) sec INR 1.3 H (<1.2) APTT 28.5 (22.0-30.0) sec Sodium 136 L (137-145) mmol/L Potassium 4.8 (3.5-5.1) mmol/L Chloride 100 (98-107) mmol/L Carbon Dioxide 21 L (22-30) mmol/L Anion Gap 15 mmol/L BUN 10 (7-17) mg/dL Creatinine 0.73 (0.52-1.04) mg/dL Est GFR (CKD-EPI)AfAm 88 (>60 ml/min/1.73 sqM) Est GFR (CKD-EPI)NonAf 76 (>60 ml/min/1.73 sqM) Glucose 153 H (74-99) mg/dL Calcium 9.4 (8.4-10.2) mg/dL Total Bilirubin 2.9 H (0.2-1.3) mg/dL AST 52 H (14-36) U/L ALT 20 (4-34) U/L Alkaline Phosphatase 76 (38-126) U/L Troponin I (0.000-0.034) ng/mL Total Protein 8.8 H (6.3-8.2) g/dL Albumin 4.7 (3.5-5.0) g/dL Serum Alcohol <10 mg/dL Blood Type Blood Type Recheck Bld Type Recheck Status Antibody Screen Spec Expiration Date 01/06/23 01/06/23 Range/Units 08:56 08:56 WBC (3.8-10.6) k/uL RBC (3.80-5.40) m/uL Hgb (11.4-16.0) gm/dL Hct (34.0-46.0) % MCV (80.0-100.0) fL MCH (25.0-35.0) pg MCHC (31.0-37.0) g/dL RDW (11.5-15.5) % Plt Count (150-450) k/uL MPV Neutrophils % % Lymphocytes % % Monocytes % % Eosinophils % % Basophils % % Neutrophils # (1.3-7.7) k/uL Lymphocytes # (1.0-4.8) k/uL Monocytes # (0-1.0) k/uL Eosinophils # (0-0.7) k/uL Basophils # (0-0.2) k/uL PT (9.0-12.0) sec INR (<1.2) APTT (22.0-30.0) sec Sodium (137-145) mmol/L Potassium (3.5-5.1) mmol/L Chloride (98-107) mmol/L Carbon Dioxide (22-30) mmol/L Anion Gap mmol/L BUN (7-17) mg/dL Creatinine (0.52-1.04) mg/dL Est GFR (CKD-EPI)AfAm (>60 ml/min/1.73 sqM) Est GFR (CKD-EPI)NonAf (>60 ml/min/1.73 sqM) Glucose (74-99) mg/dL Calcium (8.4-10.2) mg/dL Total Bilirubin (0.2-1.3) mg/dL AST (14-36) U/L ALT (4-34) U/L Alkaline Phosphatase (38-126) U/L Troponin I 0.067 H* (0.000-0.034) ng/mL Total Protein (6.3-8.2) g/dL Albumin (3.5-5.0) g/dL Serum Alcohol mg/dL Blood Type O Positive Blood Type Recheck No Previous Record Bld Type Recheck Status CABO Indicated Antibody Screen NEGATIVE Spec Expiration Date 01/09/20232355 Disposition Clinical Impression: Intracranial bleed Disposition: OTHER INSTITUTION NOT DEFINED Condition: Critical Referrals: Christopher Crawley MD [Primary Care Provider] - 1-2 days Time of Disposition: 09:47 - Out of Hospital Transfer - Req. Specs Out of Hospital Transfer - Requested Specifics: Other Emergency Center ([facility])
[2023-01-06] MEDS ORDERED: LIDOCAINE 2%-EPI 1:100,000 20 ML VIAL SQ STA (09:01)
[2023-01-06] MEDS ORDERED: ONDANSETRON ODT 4 MG TAB PO STA (09:05)
--- NOTE | 2023-01-06 09:06 | XR ---
EXAMINATION TYPE: XR pelvis AP view DATE OF EXAM: 01/06/2023 CLINICAL HISTORY: pain TECHNIQUE: Single view the pelvis is submitted. FINDINGS: No evidence for fracture, dislocation or bony lesion. Joint spaces are well-preserved. S I joints appear symmetric. IMPRESSION: 1. No acute fracture or dislocation seen. ICD 10 NO FRACTURE, INITIAL EVALUATION
--- NOTE | 2023-01-06 09:07 | XR ---
EXAMINATION TYPE: XR chest 1V portable DATE OF EXAM: 01/06/2023 HISTORY: Shortness of breath. COMPARISON: None. TECHNIQUE: Single view of the chest is submitted. FINDINGS: Demonstrated are scattered senescent parenchymal change. There is pulmonary venous congestion with small right-sided pleural effusion. Probable left basilar a telectasis or developing infiltrate. The heart is stable. Hilar and mediastinal structures are within normal limits. Degenerative changes are seen of the dorsal spine. IMPRESSION: 1. There is pulmonary venous congestion with small right-sided pleural effusion. Probable left basil ar atelectasis or developing infiltrate.
[2023-01-06 09:08] LABS: Basophils % (A) 0 %; Eosinophils # (A) 0.1 k/uL (0-0.7); Eosinophils % (A) 1 %; HCT 54.3 % (34.0-46.0); HGB 17.9 gm/dL (11.4-16.0); Lymphocytes # (A) 0.5 k/uL (1.0-4.8); Lymphocytes % (A) 5 %; MCH 29.2 pg (25.0-35.0); MCV 88.5 fL (80.0-100.0); Mean Platelet Volume 9.4; Monocytes # (A) 0.7 k/uL (0-1.0); Monocytes % (A) 7 %; Neutrophils # (A) 8.7 k/uL (1.3-7.7); Neutrophils % (A) 85 %; Platelet Count 367 k/uL (150-450); RBC 6.14 m/uL (3.80-5.40); RDW 15.3 % (11.5-15.5); WBC 10.1 k/uL (3.8-10.6)
[2023-01-06 09:26] LABS: ALT 20 U/L (4-34); AST 52 U/L (14-36); African American GFR (CKD) 88 (>60 ml/min/1.73 sqM); Albumin 4.7 g/dL (3.5-5.0); Alcohol <10 mg/dL; Anion Gap 15 mmol/L; Blood Urea Nitrogen 10 mg/dL (7-17); Calcium 9.4 mg/dL (8.4-10.2); Carbon Dioxide 21 mmol/L (22-30); Chloride 100 mmol/L (98-107); Glucose 153 mg/dL (74-99); Non-African American GFR(CKD) 76 (>60 ml/min/1.73 sqM); Sodium 136 mmol/L (137-145); Total Bilirubin 2.9 mg/dL (0.2-1.3); Total Protein 8.8 g/dL (6.3-8.2)
[2023-01-06 09:29] LABS: Alkaline Phosphatase 76 U/L (38-126); INR 1.3 (<1.2); Partial Thromboplastin Time 28.5 sec (22.0-30.0); Potassium 4.8 mmol/L (3.5-5.1); Prothrombin Time 13.2 sec (9.0-12.0)
--- NOTE | 2023-01-06 09:36 | CT ---
EXAMINATION TYPE: CT brain raúl castillo con DATE OF EXAM: 01/06/2023 COMPARISON: None HISTORY: Fall, decreased LOC CT DLP: 1824.[address] of the brain was performed. The ventricles, basal cisterns and sulci overlying the cerebral convexities demonstrate mild enlargem ent. There is an acute interhemispheric subdural hematoma measuring maximal thickness 1.9 cm with an area of decreased attenuation which may reflect the active hemorrhage. There is no additional hemorrhage s een at this time. No midline shift is noted. There is decreased attenuation about the periventricular white matter and deep white matter of both cerebral hemispheres, compatible with chronic small vesse l ischemia. No mass effects are seen. If symptoms persist consider MRI. Osseous calvarium is intact. IMPRESSION: 1. There is an acute interhemispheric subdural hematoma measuring maximal thickness 1.9 cm with an a charito of decreased attenuation which may reflect the active hemorrhage. CT Cervical Spine: Unenhanced CT of the cervical spine was performed with bone and soft tissue window settings submitted . Coronal and sagittal reconstruction is obtained. There is normal alignment and prevertebral soft tissues. No evidence for acute cervical fracture . Scattered degenerative disc disease and spondylosis. Biapical scarring. IMPRESSION: 1. No evidence for acute fracture or subluxation of the cervical spine.
[2023-01-06] MEDS ORDERED: LABETALOL 5 MG/ML VIAL MDV IVP STA (09:41)
[2023-01-06] MEDS ORDERED: LABETALOL 200 MG in SODIUM CHLORIDE 0.9% 160 ML IV ONE (09:50)
[2023-01-06] MEDS ORDERED: niCARdipine 20 MG in SODIUM CHLORIDE 0.9% 192 ML IV SCH (10:00)
[2023-01-06 10:20] VITALS: BP 210/103; PULSE 68; RESP 24; TEMP 99
== END 2023-01-06 10:17 | disposition other institution (70) ==
LOC: EC 08:28
DX: S06.5XAA Traumatic subdural hemorrhage with loss of consciousness status unknown, initial encounter (principal); Z88.0 Allergy status to penicillin; Z88.1 Allergy status to other antibiotic agents; Z88.5 Allergy status to narcotic agent; Z88.8 Allergy status to other drugs, medicaments and biological substances; W22.01XA Walked into wall, initial encounter; Y93.01 Activity, walking, marching and hiking
CPT/HCPCS: 36415; 93005; 86900; 86901; 80053; 84484; 85025; 85610; 85730; 86850; 72170; 71045; 72125; 70450; 99291; 96374; G0480; 80320

== ENCOUNTER 2023-09-16 19:43 | Inpatient (IN) | payer MEDICARE, OTHER ==
--- NOTE | 2023-09-16 20:01 | ED ---
General Adult HPI - General Source: patient, RN notes reviewed Mode of arrival: EMS Limitations: no limitations <Shayna Don - Last Filed: 09/16/23 20:00> - General Source: RN notes reviewed, old records reviewed Mode of arrival: EMS Limitations: no limitations - History of Present Illness -: days(s) Location: chest, abdomen Radiation: non-radiation Severity scale (1-10): 7 Quality: sharp Consistency: intermittent Improves with: none Worsens with: none Associated Symptoms: confusion, loss of appetite, malaise, nausea/vomiting, weakness Treatments Prior to Arrival: none <Candelario Anaya - Last Filed: 09/16/23 23:05> - General Chief complaint: Upper Respiratory Infection Stated complaint: Chest Pain,Upper Resp Time Seen by Provider: 09/16/23 20:00 - History of Present Illness Initial comments: Quick note: 83-year-old female presents to the emergency department for evaluation of cough, congestion, nausea, vomiting. She was evaluated by PCP 2 days ago with no medications prescribed at that time. Patient complaining of overall not feeling well. (Shayna Don) This is a 83-year-old female who is not been feeling well. Does have known exposure to coronavirus and recent inpatient evaluation as well as seen by primary care. Patient has had cough congestion nausea vomiting nausea vomiting is increasingly worsening and patient continues to state over and over that she is going to . Patient's family did have coronavirus about 2 weeks ago (Candelario Anaya) - Related Data Home Medications Medication Instructions Recorded Confirmed Acetaminophen Tab [Tylenol] 500 mg PO Q6HR PRN 09/05/21 09/05/21 Enoxaparin [Lovenox] 100 mg SQ BID 09/05/21 09/05/21 Isosorbide Mononitrate ER [Imdur] 30 mg PO DAILY 09/05/21 09/05/21 Metoprolol Tartrate [Lopressor] 100 mg PO BID 09/05/21 09/05/21 Spironolactone [Aldactone] 12.5 mg PO DAILY 09/05/21 09/05/21 Previous Rx's Medication Instructions Recorded Lidocaine 5% Patch [Lidoderm 5% 1 patch TOPICAL DAILY #10 patch 09/07/21 Patch] Scopolamine 1 mg/72 Hr Patch 1 patch TRANSDERM Q72H #3 patch 09/07/21 [TransDerm Scop] tiZANidine [Zanaflex] 4 mg PO TID PRN #30 tab 09/07/21 Allergies Allergy/AdvReac Type Severity Reaction Status Date / Time allopurinol Allergy Anaphylaxis Verified 09/05/21 15:59 amoxicillin [From Amoxil] Allergy Anaphylaxis Verified 09/05/21 15:59 aspirin Allergy Anaphylaxis Verified 09/05/21 15:59 ciprofloxacin [From Cipro] Allergy Anaphylaxis Verified 09/05/21 15:59 clonidine Allergy Anaphylaxis Verified 09/05/21 15:59 codeine Allergy Anaphylaxis Verified 09/05/21 15:59 hydrocodone [From [place]] Allergy Chest Pain Verified 09/05/21 15:59 hydromorphone [From Dilaudid] Allergy Anaphylaxis Verified 09/05/21 15:59 morphine Allergy Anaphylaxis Verified 09/05/21 15:59 propoxyphene Allergy Anaphylaxis Verified 09/05/21 15:59 [From Darvocet-N] Review of Systems ROS Other: All systems not noted in ROS Statement are negative. <Shayna Don - Last Filed: 09/16/23 20:00> ROS Other: All systems not noted in ROS Statement are negative. <Candelario Anaya - Last Filed: 09/16/23 23:05> ROS Statement: Those systems with pertinent positive or pertinent negative responses have been documented in the HPI. Past Medical History Additional Past Medical History / Comment(s): Lupus/ Leukemia History of Any Multi-Drug Resistant Organisms: None Reported Past Surgical History: Orthopedic Surgery Additional Past Surgical History / Comment(s): Shoulder dislocation Past Psychological History: No Psychological Hx Reported Smoking Status: Never smoker Past Alcohol Use History: None Reported Past Drug Use History: None Reported <Shanya Don - Last Filed: 09/16/23 20:00> General Exam Limitations: no limitations <Shayna Don - Last Filed: 09/16/23 20:00> Limitations: altered mental status, physical limitation General appearance: alert, anxious, in distress Head exam: Present: atraumatic, normocephalic, normal inspection Eye exam: Present: normal appearance, PERRL, EOMI. Absent: scleral icterus, conjunctival injection, periorbital swelling ENT exam: Present: normal exam, mucous membranes moist Neck exam: Present: normal inspection. Absent: tenderness, meningismus, ly mphadenopathy Respiratory exam: Present: normal lung sounds bilaterally. Absent: respiratory distress, wheezes, rales, rhonchi, stridor Cardiovascular Exam: Present: regular rate, normal rhythm, normal heart sounds. Absent: systolic murmur, diastolic murmur, rubs, gallop, clicks GI/Abdominal exam: Present: soft, normal bowel sounds. Absent: distended, tenderness, guarding, rebound, rigid Extremities exam: Present: normal inspection, full ROM, normal capillary refill. Absent: tenderness, pedal edema, joint swelling, calf tenderness Back exam: Present: normal inspection Neurological exam: Present: alert, oriented X3, CN II-XII intact Psychiatric exam: Present: normal affect, normal mood Skin exam: Present: warm, dry, intact, normal color. Absent: rash <Candelario Anaya - Last Filed: 09/16/23 23:05> - General Exam Comments Initial Comments: Visual Physical Exam Vital signs reviewed General: Well-appearing, nontoxic, no acute distress. Head: Normocephalic, atraumatic Eyes: PERRLA, EOMI ENT: Airway patent Chest: Nonlabored breathing Skin: No visual rash, normal skin tone Neuro: Alert and oriented 3 Musculoskeletal: No gross abnormalities (Shayna Don) Course <Candelario Anaya - Last Filed: 09/16/23 23:05> Vital Signs 09/16/23 19:51 Temperature 97.4 F L Pulse Rate 52 L Respiratory 16 Rate Blood Pressure 112/55 O2 Sat by Pulse 93 L Oximetry - Reevaluation(s) Reevaluation #1: 09/16/23 23:03 Medical records reviewed (Candelario Anaya) Reevaluation #2: 09/16/23 23:03 Patient symptoms are mildly improved here in the ER (Candelario Anaya) Reevaluation #3: 09/16/23 23:03 Informed of results and questions answered (Candelario Anaya) Reevaluation #4: Was pt. sent in by a medical professional or institution (, PA, SPECIAL NEEDS TUTOR, urgent care, hospital, or fpc...) When possible be specific @ -no Did you speak to anyone other than the patient for history (EMS, parent, family, police, friend...)? What history was obtained from this source @ -no Did you review nursing and triage notes (agree or disagree)? Why? @ -agree Are old charts reviewed (outside hosp., previous admission, EMS record, old EKG, old radiological studies, urgent care reports/EKG's, fpc records)? Report findings @ -yes Differential Diagnosis (chest pain, altered mental status, abdominal pain women, abdominal pain men, vaginal bleeding, weakness, fever, dyspnea, syncope, headache, dizziness, GI bleed, back pain, seizure, CVA, palpatations, mental health, musculoskeletal)? @ -prior EKG interpreted by me (3pts min.). @ -yes X-rays interpreted by me (1pt min.). @ -yes negative for acute disease CT interpreted by me (1pt min.). @ -no U/S interpreted by me (1pt. min.). @ -no What testing was considered but not performed or refused? (CT, X-rays, U/S, labs)? Why? @ -none What meds were considered but not given or refused? Why? @ -none Did you discuss the management of the patient with other professionals (professionals i.e. , PA, SPECIAL NEEDS TUTOR, lab, RT, psych nurse, sexual assault social worker, drying equipment operator, teacher, combat information center officer, correctional counselor/case manager)? Give summary @ -no Was smoking cessation discussed for >3mins.? @ -no Was critical care preformed (if so, how long)? @ -no Were there social determinants of health that impacted care today? How? (Ho melessness, low income, unemployed, alcoholism, drug addiction, transportation, low edu. Level, literacy, decrease access to med. care, senior living, rehab)? @ -none Was there de-escalation of care discussed even if they declined (Discuss DNR or withdrawal of care, Hospice)? DNR status @ -no What co-morbidities impacted this encounter? (DM, HTN, Smoking, COPD, CAD, Cancer, CVA, ARF, Chemo, Hep., AIDS, mental health diagnosis, sleep apnea, morbid obesity)? @ -none Was patient admitted / discharged? Hospital course, mention meds given and route, prescriptions, significant lab abnormalities, going to OR and other pertinent info. @ - Undiagnosed new problem with uncertain prognosis? @ -no Drug Therapy requiring intensive monitoring for toxicity (Heparin, Nitro, Insulin, Cardizem)? @ -no Were any procedures done? @ -no Diagnosis/symptom? @ - Acute, or Chronic, or Acute on Chronic? @ -Acute Uncomplicated (without systemic symptoms) or Complicated (systemic symptoms)? @ -Complicated Side effects of treatment? @ -no Exacerbation, Progression, or Severe Exacerbation? @ -exacerbation Poses a threat to life or bodily function? How? (Chest pain, [place], [place], pneumonia, PE, COPD, DKA, ARF, appy, cholecystitis, CVA, Diverticulitis, Homicidal, Suicidal, threat to staff... and all critical care pts) @ -yes (Candelario Anaya) Reevaluation #5: Differential Weakness: Hypoglycemia, shock, sepsis, hyponatremia, anemia, infection, [place], ETOH, adverse medicine reaction, overdose, stroke, this is not meant to be an all-inclusive list. (Candelario Anaya) - Consultations Consultation #1: [email or web address] With Dr Crawley who agrees to admit this patient (Candelario Anaya) EKG Findings - EKG Comments: EKG Findings:: EKG A-fib 57 QRS 87 QTc 434 - EKG Results: EKG: interpreted by ERMD <Candelario Anaya - Last Filed: 09/16/23 23:05> Medical Decision Making <Shayna Don - Last Filed: 09/16/23 20:00> - Lab Data Result diagrams: 09/16/23 20:00 09/16/23 20:00 - EKG Data -: EKG Interpreted by Ut - Radiology Data Radiology results: report reviewed (Chest x-ray is positive for pneumonia), image reviewed <Candelario Anaya - Last Filed: 09/16/23 23:05> - Medical Decision Making Quick note preformed and electronically signed by Shayna Don PA-C (Shayna Don) 83 female to ER for evaluation of weakness not feeling well nausea vomiting shortness of breath positive for coronavirus positive for pneumonia positive active nausea vomiting significant. Will be admitted for supportive care (Candelario Anaya) - Lab Data Lab Results 09/16/23 09/16/23 09/16/23 Range/Units 19:54 20:00 20:00 WBC 6.0 (3.8-10.6) k/uL RBC 4.84 (3.80-5.40) m/uL Hgb 13.7 (11.4-16.0) gm/dL Hct 44.8 (34.0-46.0) % MCV 92.6 (80.0-100.0) fL MCH 28.4 (25.0-35.0) pg MCHC 30.6 L (31.0-37.0) g/dL RDW 16.6 H (11.5-15.5) % Plt Count 448 (150-450) k/uL MPV 9.5 Neutrophils % 82 % Lymphocytes % 11 % Monocytes % 3 % Eosinophils % 2 % Basophils % 1 % Neutrophils # 4.9 (1.3-7.7) k/uL Lymphocytes # 0.6 L (1.0-4.8) k/uL Monocytes # 0.2 (0-1.0) k/uL Eosinophils # 0.1 (0-0.7) k/uL Basophils # 0.1 (0-0.2) k/uL Anisocytosis Slight Sodium 138 (137-145) mmol/L Potassium 3.7 (3.5-5.1) mmol/L Chloride 108 H (98-107) mmol/L Carbon Dioxide 21 L (22-30) mmol/L Anion Gap 9 mmol/L BUN 17 (7-17) mg/dL Creatinine 0.64 (0.52-1.04) mg/dL Est GFR (CKD-EPI)AfAm >90 (>60 ml/min/1.73 sqM) Est GFR (CKD-EPI)NonAf 82 (>60 ml/min/1.73 sqM) Glucose 123 H (74-99) mg/dL Calcium 8.6 (8.4-10.2) mg/dL Phosphorus (2.5-4.5) mg/dL Magnesium (1.6-2.3) mg/dL Total Bilirubin 1.1 (0.2-1.3) mg/dL AST 19 (14-36) U/L ALT 8 (4-34) U/L Alkaline Phosphatase 65 (38-126) U/L NT-Pro-B Natriuret Pep pg/mL Total Protein 7.2 (6.3-8.2) g/dL Albumin 3.2 L (3.5-5.0) g/dL Influenza Type A (PCR) Not Detected (Not Detectd) Influenza Type B (PCR) Not Detected (Not Detectd) RSV (PCR) Not Detected (Not Detectd) SARS-CoV-2 (PCR) Detected A (Not Detectd) 09/16/23 Range/Units 20:30 WBC (3.8-10.6) k/uL RBC (3.80-5.40) m/uL Hgb (11.4-16.0) gm/dL Hct (34.0-46.0) % MCV (80.0-100.0) fL MCH (25.0-35.0) pg MCHC (31.0-37.0) g/dL RDW (11.5-15.5) % Plt Count (150-450) k/uL MPV Neutrophils % % Lymphocytes % % Monocytes % % Eosinophils % % Basophils % % Neutrophils # (1.3-7.7) k/uL Lymphocytes # (1.0-4.8) k/uL Monocytes # (0-1.0) k/uL Eosinophils # (0-0.7) k/uL Basophils # (0-0.2) k/uL Anisocytosis Sodium (137-145) mmol/L Potassium (3.5-5.1) mmol/L Chloride (98-107) mmol/L Carbon Dioxide (22-30) mmol/L Anion Gap mmol/L BUN (7-17) mg/dL Creatinine (0.52-1.04) mg/dL Est GFR (CKD-EPI)AfAm (>60 ml/min/1.73 sqM) Est GFR (CKD-EPI)NonAf (>60 ml/min/1.73 sqM) Glucose (74-99) mg/dL Calcium (8.4-10.2) mg/dL Phosphorus 3.4 (2.5-4.5) mg/dL Magnesium 1.4 L (1.6-2.3) mg/dL Total Bilirubin (0.2-1.3) mg/dL AST (14-36) U/L ALT (4-34) U/L Alkaline Phosphatase (38-126) U/L NT-Pro-B Natriuret Pep 5450 pg/mL Total Protein (6.3-8.2) g/dL Albumin (3.5-5.0) g/dL Influenza Type A (PCR) (Not Detectd) Influenza Type B (PCR) (Not Detectd) RSV (PCR) (Not Detectd) SARS-CoV-2 (PCR) (Not Detectd) Disposition <Shayna Don - Last Filed: 09/16/23 20:00> Is patient prescribed a controlled substance at d/c from ED?: No Time of Disposition: 22:00 <Candelario Anaya - Last Filed: 09/16/23 23:05> Clinical Impression: Intractable pain, Upper respiratory tract infection, Acute upper respiratory infection, Coronavirus infection, Pneumonia, Nausea & vomiting, Weakness Disposition: ADMITTED IP TO THIS HOSP Condition: Serious Referrals: Christopher Crawley MD [Primary Care Provider] - 1-2 days
[2023-09-16 20:16] LABS: Anisocytosis Slight; Basophils # (A) 0.1 k/uL (0-0.2); Basophils % (A) 1 %; Eosinophils # (A) 0.1 k/uL (0-0.7); Eosinophils % (A) 2 %; HCT 44.8 % (34.0-46.0); HGB 13.7 gm/dL (11.4-16.0); Lymphocytes # (A) 0.6 k/uL (1.0-4.8); Lymphocytes % (A) 11 %; MCH 28.4 pg (25.0-35.0); MCHC 30.6 g/dL (31.0-37.0); MCV 92.6 fL (80.0-100.0); Mean Platelet Volume 9.5; Monocytes # (A) 0.2 k/uL (0-1.0); Monocytes % (A) 3 %; Neutrophils # (A) 4.9 k/uL (1.3-7.7); Neutrophils % (A) 82 %; Platelet Count 448 k/uL (150-450); RBC 4.84 m/uL (3.80-5.40); RDW 16.6 % (11.5-15.5)
--- NOTE | 2023-09-16 20:19 | XR ---
EXAMINATION TYPE: XR chest 2V DATE OF EXAM: 09/16/2023 COMPARISON: NONE HISTORY: Cough TECHNIQUE: Frontal and lateral views of the chest are obtained. FINDINGS: There is a partially consolidated opacity in the right upper lobe likely indicating acute pneumonia. The left lung is clear. There is no pleural effusion or pneumothorax. Heart and pulmonary vasculature are normal. The osseous structures are intact. IMPRESSION: Findings most consistent with right upper lobe pneumonia. Follow-up to resolution is rec ommended.
[2023-09-16 20:30] LABS: ALT 8 U/L (4-34); AST 19 U/L (14-36); African American GFR (CKD) >90 (>60 ml/min/1.73 sqM); Albumin 3.2 g/dL (3.5-5.0); Alkaline Phosphatase 65 U/L (38-126); Anion Gap 9 mmol/L; Blood Urea Nitrogen 17 mg/dL (7-17); Calcium 8.6 mg/dL (8.4-10.2); Carbon Dioxide 21 mmol/L (22-30); Chloride 108 mmol/L (98-107); Glucose 123 mg/dL (74-99); Non-African American GFR(CKD) 82 (>60 ml/min/1.73 sqM); Potassium 3.7 mmol/L (3.5-5.1); Sodium 138 mmol/L (137-145); Total Bilirubin 1.1 mg/dL (0.2-1.3); Total Protein 7.2 g/dL (6.3-8.2)
[2023-09-16] MEDS ORDERED: PNEUMONIA PROTOCOL UTILIZED 1 EACH MISC PO PRN (22:11)
[2023-09-16] MEDS ORDERED: IPRATROPIUM-ALBUTEROL 3 ML NEB INHALATION PRN (22:11)
[2023-09-16 22:41] LABS: Magnesium 1.4 mg/dL (1.6-2.3); Phosphorus 3.4 mg/dL (2.5-4.5)
[2023-09-16] MEDS: SODIUM CHLORIDE 0.9% 1,000 ML IV STA (23:12)
[2023-09-16] MEDS: SODIUM CHLORIDE 0.9% 500 ML 500 ML IV STA (23:13)
[2023-09-16] MEDS: ONDANSETRON 4 MG/2 ML VIAL IVP STA (23:18)
[2023-09-16] MEDS: PANTOPRAZOLE 40 MG/10 ML VIAL IV SCH (23:20)
[2023-09-17] MEDS: AZITHROMYCIN 500 MG in SODIUM CHLORIDE 0.9% 250 ML IVPB STA (00:23)
[2023-09-17] MEDS: metroNIDAZOLE-NS PMX 500 MG in SALINE 1 100ML.BAG IVPB SCH (01:47)
[2023-09-17 06:45] LABS: Anisocytosis Slight; Basophils % (A) 1 %; Eosinophils % (A) 0 %; HGB 13.1 gm/dL (11.4-16.0); Hypochromasia Slight; Lymphocytes # (A) 0.6 k/uL (1.0-4.8); Lymphocytes % (A) 9 %; MCH 28.4 pg (25.0-35.0); MCHC 30.5 g/dL (31.0-37.0); MCV 93.1 fL (80.0-100.0); Mean Platelet Volume 9.4; Monocytes # (A) 0.2 k/uL (0-1.0); Monocytes % (A) 4 %; Neutrophils # (A) 5.6 k/uL (1.3-7.7); Neutrophils % (A) 86 %; Platelet Count 494 k/uL (150-450); RBC 4.62 m/uL (3.80-5.40); RDW 16.6 % (11.5-15.5); WBC 6.6 k/uL (3.8-10.6)
[2023-09-17 07:07] LABS: ALT 8 U/L (4-34); AST 18 U/L (14-36); African American GFR (CKD) 87 (>60 ml/min/1.73 sqM); Alkaline Phosphatase 61 U/L (38-126); Anion Gap 9 mmol/L; Blood Urea Nitrogen 18 mg/dL (7-17); Calcium 8.3 mg/dL (8.4-10.2); Carbon Dioxide 20 mmol/L (22-30); Chloride 109 mmol/L (98-107); Glucose 105 mg/dL (74-99); Lipase 31 U/L (23-300); Magnesium 1.3 mg/dL (1.6-2.3); Non-African American GFR(CKD) 76 (>60 ml/min/1.73 sqM); Phosphorus 3.9 mg/dL (2.5-4.5); Sodium 138 mmol/L (137-145); Total Bilirubin 0.8 mg/dL (0.2-1.3)
--- NOTE | 2023-09-17 07:53 | XR ---
EXAMINATION TYPE: XR chest 1V portable DATE OF EXAM: 09/17/2023 COMPARISON: 09/16/2023 HISTORY: Cough TECHNIQUE: Single frontal view of the chest is obtained. FINDINGS: Bilateral consolidation and small right effusion with elevated hemidiaphragm. Postsurgical change left shoulder. Diffuse osteopenia. No pneumothorax. Heart size is enlarged. Degenerative george ges of the spine. IMPRESSION: Bilateral consolidation and small effusion correlate for pneumonia otherwise consider CH F. No significant interval change.
[2023-09-17] MEDS ORDERED: HYOSCYAMINE SULFATE 0.125 MG TAB PO PRN (08:06)
[2023-09-17] MEDS ORDERED: LOPERAMIDE 2 MG CAP PO PRN (08:06)
[2023-09-17] MEDS: amLODIPine 5 MG TAB PO SCH (08:24)
[2023-09-17] MEDS: ONDANSETRON 4 MG TAB PO PRN (08:25)
[2023-09-17] MEDS: hydrALAZINE HCL 25 MG TAB PO SCH (08:25)
[2023-09-17] MEDS: FUROSEMIDE 20 MG TAB PO SCH (08:25)
[2023-09-17] MEDS: carvediloL 12.5 MG TAB PO SCH (08:25)
[2023-09-17] MEDS: allopurinoL 100 MG TAB PO SCH (08:25)
[2023-09-17] MEDS: CYANOCOBALAMIN 500 MCG TAB PO SCH (08:25)
[2023-09-17] MEDS: POTASSIUM CHLORIDE ER 10 MEQ TAB.ER.PRT PO SCH (08:25)
[2023-09-17] MEDS: LOSARTAN 50 MG TAB PO SCH (08:25)
--- NOTE | 2023-09-17 08:40 | P.HPIM ---
History of Present Illness H&P Date: 09/17/23 Chief Complaint: Severe dyspnea and shortness of breath, bilateral pneumonia, COVID pneumoni HISTORY OF PRESENT ILLNESS: 83-year-old who is known for over 25 years with active medical history of coagulopathy with factor V Leiden deficiency with multi blood clot including PE and DVT has been on anticoagulation with Lovenox 80 mg twice a day for long time was seen Dr. Flores hematology also was seen cardiology and pulmonary before. Also patient has history of uterine cancer and history of benign colon growth postresection years ago who has severe problem with mobility and chronic lower back pain she is not able to ambulate and walk without help she walks sometimes with a walker. She has been seen in the visiting physician last few weeks apparently was seen on Saturday for being sick for few days with worsening congestion shortness of breath and cough they brought to her attention the possibility of COVID apparently test was done was never called back on Saturday she become Quite bit ill with worsening dyspnea and shortness of breath ended up calling 911 and brought to the emergency department by ambulance. With high suspicion for COVID-19 her culture came back positive, testing with white blood cell is normal normal hemoglobin hematocrit blood sugar was mildly elevated magnesium was a bit low her marker including proBNP troponin were negative. Chest x-ray shows bilateral infiltrate worse in the right side and the left side with slight pleural effusion as well and typical consolidation and pneumonia patient some signs and symptoms of congestive heart failure as well. She was started on Rocephin along with azithromycin and Flagyl steroid updraft treatment along with oxygen and supportive care admit to the hospital. REVIEW OF SYSTEMS: CONSTITUTIONAL: Well-developed in mild respiratory distress.. Slightly bit confused EYES: No icterus sclerae, no conjunctivitis. EARS, NOSE, MOUTH, THROAT, and FACE: No sore throat, lymphadenopathy, carotid bruits or deformity. With more throat congestion. RESPIRATORY: Positive shortness of breath cough wheezing hypoxia. CARDIOVASCULAR: Positive PND orthopnea palpitation with mild irregularity and arrhythmia. GASTROINTESTINAL: Abdominal discomfort with diarrhea nausea no vomiting. GENITOURINARY: Negative for Hematuria or UTI, no kidney stones. Worsening incontinence. INTEGUMENT/BREAST: Negative for any muscular injury with mild osteoarthritis.. HEMATOLOGIC/LYMPHATIC: Negative for bleed or purpura. History of coagulopathy. MUSCULOSKELTAL: Generalized arthralgia and myalgia with worsening back pain. NEURLOGICAL: No LOC, Sz or syncope, blurred vision dizziness or abnormality.. Slight confusion. BEHAVIORAL/PSYCH: Negative. ENDOCRINE: Negative. PHYSICAL EXAMINATION: General Appearance: Alert, cooperative, in mild distress. Neck HEENT: Supple, no lymphadenopathy, no thyroid enlargement, no carotid bruits. Marked throat congestion as well. Lungs: Decreased breath sound bilaterally with fine rhonchi with crackles in the right base mostly more than the left side with inspiratory expiratory wheezes mild rhonchi across both lung marks. Chest Wall: Decreased expansion with deep inspiration no tenderness and no deformity was found on exam, no costochondral pain or discomfort. Heart: iRRegular rate and rhythm, S1, S2 positive S3 positive systolic murmur. Back: severe scoliosis with mild lower lumbar discomfort Abdomen: Soft with slight tenderness in the midepigastric area lower abdominal region with mild discomfort no rebound or rigidity. Extremities: Extremities normal, atraumatic, no cyanosis or edema. Pulses: 2+ and symmetric. Skin: Skin color, texture, tugor normal, no rashes or lesions. Neurologic: Alert oriented with slight confusion cranial nerves II to XII intact positive generalized weakness moving all 4 extremity not able to do balance and gait exam. ASSESSMENT AND PLAN: _Acute respiratory failure: Combination of bilateral pneumonia, congestive heart failure, COVID pneumonitis along with mild COPD exacerbation. _Acute COVID pneumonitis: She does not recall exposure or timeframe at most likely in the last 3 to 4 days become much worse since Saturday will continue current management with steroid multivitamin supportive care updraft treatment consult pulmonary. _Bilateral bacterial pneumonitis: Despite her COVID pneumonitis she had co nsolidation and infiltrate Agree with the emergency room by having her on azithromycin along with Rocephin try to do sputum for Gram stain and culture and treat accordingly. _Worsening shortness of breath and wheezes: Most likely slight combination of COPD/chronic bronchitis component continue steroid with Medrol 4 mg daily along with updraft treatment and Pulmicort. _Congestive heart failure exacerbation with history of diastolic heart failure in the past she is to continue furosemide, Coreg and hydralazine with isosorbide patient had allergy to JOHANN inhibitor and high sensitivity to it. _Coagulopathy with factor V Leiden deficiency: Has been on Lovenox 80 mg twice a day for last 10 years patient had multiple blood clot including PE and DVT she is to continue her coagulation management. _History of polycythemia: Still stable continues watching her hemoglobin hem atocrit on regular basis. Still seeing oncology. _Atrial fibrillation without rapid ventricular response: Has been on anticoagulation and Coreg continue medication. _Atherosclerotic heart disease was seen cardiology previously, will continue isosorbide, Coreg, aspirin along with losartan. _Hypertension: Resume losartan and Coreg along with hydralazine. _Hyperlipidemia: Has been on atorvastatin 40 mg daily. _Multiple drug allergy: Caution with any new medication she is going to be started on. _GI prophylaxis: Continue patient on pantoprazole 40 mg daily. _DVT prophylaxis: She is on active DVT treatment. CODE STATUS: Full code. Admit patient to the inpatient service for more than 2 night stay. Past Medical History Additional Past Medical History / Comment(s): Lupus/ Leukemia History of Any Multi-Drug Resistant Organisms: None Reported Past Surgical History: Orthopedic Surgery Additional Past Surgical History / Comment(s): Shoulder dislocation Past Psychological History: No Psychological Hx Reported Smoking Status: Never smoker Past Alcohol Use History: None Reported Past Drug Use History: None Reported Medications and Allergies Home Medications Medication Instructions Recorded Confirmed Type Atorvastatin [Lipitor] 40 mg PO HS 09/17/23 09/17/23 History Cholecalciferol (Vitamin D3) 1,250 mcg PO Q7D 09/17/23 09/17/23 History [Vitamin D3 (1250 Mcg = 50,000 Iu)] Ciclopirox 0.77% Cream 1 applic TOPICAL BID 09/17/23 09/17/23 History Cyanocobalamin (Vitamin B-12) 1,000 mcg PO DAILY 09/17/23 09/17/23 History [Vitamin B-12] Furosemide [Lasix] 20 mg PO DAILY 09/17/23 09/17/23 History HYDROcodone/APAP 5-325MG [[place] 1 tab PO TID PRN 09/17/23 09/17/23 History 5-325] Hyoscyamine Sulfate [Levsin] 0.125 mg PO Q6H PRN 09/17/23 09/17/23 History Loperamide [Imodium] 2 - 4 mg PO QID PRN 09/17/23 09/17/23 History Losartan [Cozaar] 50 mg PO DAILY 09/17/23 09/17/23 History Meclizine [Antivert] 12.5 mg PO Q8H PRN 09/17/23 09/17/23 History Melatonin 5 mg PO HS 09/17/23 09/17/23 History Meloxicam [Mobic] 7.5 mg PO BID 09/17/23 09/17/23 History Omeprazole [PriLOSEC] 20 mg PO AC-BID 09/17/23 09/17/23 History Ondansetron [Zofran] 4 mg PO Q8HR PRN 09/17/23 09/17/23 History Potassium Chloride ER [K-Dur 10] 10 meq PO DAILY 09/17/23 09/17/23 History Prochlorperazine [Compazine] 10 mg PO AC-TID PRN 09/17/23 09/17/23 History allopurinoL [Zyloprim] 100 mg PO BID 09/17/23 09/17/23 History amLODIPine [Norvasc] 10 mg PO DAILY 09/17/23 09/17/23 History carvediloL [Coreg] 12.5 mg PO BID 09/17/23 09/17/23 History hydrALAZINE HCL [Apresoline] 25 mg PO TID-W/MEALS 09/17/23 09/17/23 History Allergies Allergy/AdvReac Type Severity Reaction Status Date / Time allopurinol Allergy Anaphylaxis Verified 09/17/23 07:30 amoxicillin [From Amoxil] Allergy Anaphylaxis Verified 09/17/23 07:29 aspirin Allergy Anaphylaxis Verified 09/17/23 07:29 ciprofloxacin [From Cipro] Allergy Anaphylaxis Verified 09/17/23 07:29 clonidine Allergy Anaphylaxis Verified 09/17/23 07:29 codeine Allergy Anaphylaxis Verified 09/17/23 07:29 hydrocodone [From [place]] Allergy Chest Pain Verified 09/17/23 07:29 hydromorphone [From Dilaudid] Allergy Anaphylaxis Verified 09/17/23 07:29 morphine Allergy Anaphylaxis Verified 09/17/23 07:29 propoxyphene Allergy Anaphylaxis Verified 09/17/23 07:29 [From Darvocet-N] Physical Exam Vitals: Vital Signs Temp Pulse Resp BP Pulse Ox 09/17/23 02:00 54 L 18 126/67 95 09/17/23 00:25 52 L 16 121/65 96 09/16/23 23:31 52 L 16 119/65 96 09/16/23 19:51 97.4 F L 52 L 16 112/55 93 L Intake and Output 09/16/23 09/17/23 09/17/23 22:59 06:59 14:59 Other: Weight 72.575 kg Results CBC & Chem 7: 09/17/23 06:01 09/17/23 06:01 Labs: Abnormal Lab Results - Last 24 Hours (Table) 09/16/23 09/16/23 09/16/23 Range/Units 19:54 20:00 20:00 MCHC 30.6 L (31.0-37.0) g/dL RDW 16.6 H (11.5-15.5) % Plt Count (150-450) k/uL Lymphocytes # 0.6 L (1.0-4.8) k/uL Chloride 108 H (98-107) mmol/L Carbon Dioxide 21 L (22-30) mmol/L BUN (7-17) mg/dL Glucose 123 H (74-99) mg/dL Calcium (8.4-10.2) mg/dL Magnesium (1.6-2.3) mg/dL Albumin 3.2 L (3.5-5.0) g/dL SARS-CoV-2 (PCR) Detected A (Not Detectd) 09/16/23 09/17/23 09/17/23 Range/Units 20:30 06:01 06:01 MCHC 30.5 L (31.0-37.0) g/dL RDW 16.6 H (11.5-15.5) % Plt Count 494 H (150-450) k/uL Lymphocytes # 0.6 L (1.0-4.8) k/uL Chloride 109 H (98-107) mmol/L Carbon Dioxide 20 L (22-30) mmol/L BUN 18 H (7-17) mg/dL Glucose 105 H (74-99) mg/dL Calcium 8.3 L (8.4-10.2) mg/dL Magnesium 1.4 L 1.3 L (1.6-2.3) mg/dL Albumin 3.0 L (3.5-5.0) g/dL SARS-CoV-2 (PCR) (Not Detectd)
[2023-09-17] MEDS: ALBUTEROL HFA INHALER INHALATION SCH (08:57)
[2023-09-17] MEDS: CLOTRIMAZOLE 1% CREAM 30 GM TUBE TOPICAL SCH (09:00)
[2023-09-17] MEDS: ENOXAPARIN 80 MG/0.8 ML SYRINGE SQ SCH (09:00)
[2023-09-17] MEDS: PANTOPRAZOLE 40 MG TABLET PO SCH (09:01)
[2023-09-17] MEDS: HYDROcodone/APAP 5-325MG 1 EACH TAB PO PRN (09:13)
--- NOTE | 2023-09-17 12:46 | P.CNPUL ---
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 80 mg SQ twice daily, patient normally follows up with hematology regarding her factor V Leyden mutation. She is also known to have history of uterine cancer, history of chronic low back pain, patient is not able to ambulate much on her own. She does use a walker. Patient presented to the ER mostly with 2 weeks history of cough and congestion. Patient tested recently positive for COVID-19 infection by visiting physician, however she was not made aware of the test until today. In the meantime the patient has been developing worsening pulmonary symptoms mostly cough congestion, shortness of breath, and she had intermittent episodes of diarrhea. Chest x-ray on this admission showed evidence of right upper lobe pneumonia, patient was admitted, placed on Rocephin and Zithromax, and this consult was initiated. Patient is on room air, does not seem to be in any distress, chest x-ray clearly shows evidence of pneumonia/infiltrate in the right upper lobe, however patient does not qualify for remdesivir treatment for multiple reasons including the fact that she is on room air, and her symptoms go at least 2 weeks back. Based on the information given to me from the patient herself at any rate I am recommending that we continue the treatment with the same antibiotics, check procalcitonin level, check inflammatory markers, and treat accordingly Review of Systems CONSTITUTIONAL: Generalized weakness, fatigue. EYES: Negative EARS, NOSE, MOUTH, THROAT, and FACE: Negative RESPIRATORY: As noted in HPI. CARDIOVASCULAR: Negative GASTROINTESTINAL: Intermittent episodes of diarrhea with vague abdominal discomfort GENITOURINARY: Negative. INTEGUMENT/BREAST: Negative HEMATOLOGIC/LYMPHATIC: Negative MUSCULOSKELTAL: Vague aches and pains and arthralgia NEURLOGICAL: Negative BEHAVIORAL/PSYCH: Negative ENDOCRINE: Negative. Past Medical History Additional Past Medical History / Comment(s): Lupus/ Leukemia History of Any Multi-Drug Resistant Organisms: None Reported Past Surgical History: Orthopedic Surgery Additional Past Surgical History / Comment(s): Shoulder dislocation Past Psychological History: No Psychological Hx Reported Smoking Status: Never smoker Past Alcohol Use History: None Reported Past Drug Use History: None Reported Medications and Allergies Home Medications Medication Instructions Recorded Confirmed Type Atorvastatin [Lipitor] 40 mg PO HS 09/17/23 09/17/23 History Cholecalciferol (Vitamin D3) 1,250 mcg PO Q7D 09/17/23 09/17/23 History [Vitamin D3 (1250 Mcg = 50,000 Iu)] Ciclopirox 0.77% Cream 1 applic TOPICAL BID 09/17/23 09/17/23 History Cyanocobalamin (Vitamin B-12) 1,000 mcg PO DAILY 09/17/23 09/17/23 History [Vitamin B-12] Furosemide [Lasix] 20 mg PO DAILY 09/17/23 09/17/23 History HYDROcodone/APAP 5-325MG [[place] 1 tab PO TID PRN 09/17/23 09/17/23 History 5-325] Hyoscyamine Sulfate [Levsin] 0.125 mg PO Q6H PRN 09/17/23 09/17/23 History Loperamide [Imodium] 2 - 4 mg PO QID PRN 09/17/23 09/17/23 History Losartan [Cozaar] 50 mg PO DAILY 09/17/23 09/17/23 History Meclizine [Antivert] 12.5 mg PO Q8H PRN 09/17/23 09/17/23 History Melatonin 5 mg PO HS 09/17/23 09/17/23 History Meloxicam [Mobic] 7.5 mg PO BID 09/17/23 09/17/23 History Omeprazole [PriLOSEC] 20 mg PO AC-BID 09/17/23 09/17/23 History Ondansetron [Zofran] 4 mg PO Q8HR PRN 09/17/23 09/17/23 History Potassium Chloride ER [K-Dur 10] 10 meq PO DAILY 09/17/23 09/17/23 History Prochlorperazine [Compazine] 10 mg PO AC-TID PRN 09/17/23 09/17/23 History allopurinoL [Zyloprim] 100 mg PO BID 09/17/23 09/17/23 History amLODIPine [Norvasc] 10 mg PO DAILY 09/17/23 09/17/23 History carvediloL [Coreg] 12.5 mg PO BID 09/17/23 09/17/23 History hydrALAZINE HCL [Apresoline] 25 mg PO TID-W/MEALS 09/17/23 09/17/23 History Allergies Allergy/AdvReac Type Severity Reaction Status Date / Time allopurinol Allergy Anaphylaxis Verified 09/17/23 07:30 amoxicillin [From Amoxil] Allergy Anaphylaxis Verified 09/17/23 07:29 aspirin Allergy Anaphylaxis Verified 09/17/23 07:29 ciprofloxacin [From Cipro] Allergy Anaphylaxis Verified 09/17/23 07:29 clonidine Allergy Anaphylaxis Verified 09/17/23 07:29 codeine Allergy Anaphylaxis Verified 09/17/23 07:29 hydrocodone [From [place]] Allergy Chest Pain Verified 09/17/23 07:29 hydromorphone [From Dilaudid] Allergy Anaphylaxis Verified 09/17/23 07:29 morphine Allergy Anaphylaxis Verified 09/17/23 07:29 propoxyphene Allergy Anaphylaxis Verified 09/17/23 07:29 [From Darvocet-N] Physical Exam Vitals: Vital Signs Temp Pulse Pulse Resp BP BP Pulse Ox 09/17/23 09:39 98.2 F 86 18 126/73 09/17/23 08:00 18 09/17/23 02:00 54 L 18 126/67 95 09/17/23 00:25 52 L 16 121/65 96 09/16/23 23:31 52 L 16 119/65 96 09/16/23 19:51 97.4 F L 52 L 16 112/55 93 L Intake and Output 09/16/23 09/17/23 09/17/23 22:59 06:59 14:59 Other: Weight 72.575 kg PHYSICAL EXAMINATION: General: Revealed 83-year-old female in no distress Head: Atraumatic normocephalic HEENT: Supple, no neck masses no JVD no stridor, throat and oropharyngeal congestion is noted. Lungs: Inspiratory crackles and rhonchi noted mostly on the right side. Left side is relatively clear. Chest Wall: No chest wall tenderness, symmetrical chest expansion Heart: iRRegular rate and rhythm, normal S1-S2, no S3 gallop, 2/6 systolic murmur throughout the precordium Back: Evidence of scoliosis Abdomen: Soft nontender no megaly no rebound no guarding Extremities: No clubbing edema or cyanosis Pulses: Good pulses bilaterally Skin: Normal skin color, normal turgor, no rashes Neurologic: Alert oriented x 3 no gross focal deficit Psychiatric: Normal mood affect and no mental status examination Results - Laboratory Findings CBC and BMP: 09/17/23 06:01 09/17/23 06:01 Abnormal lab findings: Abnormal Labs 09/16/23 09/16/23 09/16/23 19:54 20:00 20:00 MCHC 30.6 L RDW 16.6 H Plt Count Lymphocytes # 0.6 L Chloride 108 H Carbon Dioxide 21 L BUN Glucose 123 H Calcium Magnesium Albumin 3.2 L SARS-CoV-2 (PCR) Detected A 09/16/23 09/17/23 09/17/23 20:30 06:01 06:01 MCHC 30.5 L RDW 16.6 H Plt Count 494 H Lymphocytes # 0.6 L Chloride 109 H Carbon Dioxide 20 L BUN 18 H Glucose 105 H Calcium 8.3 L Magnesium 1.4 L 1.3 L Albumin 3.0 L SARS-CoV-2 (PCR) - Diagnostic Findings Chest x-ray: image reviewed (As noted in HPI) Assessment and Plan Assessment: Impression: Acute COVID-19 infection, possible COVID-19 pneumonia or superimposed community- acquired pneumonia. History of underlying COPD with acute exacerbation of COPD History of chronic diastolic congestive heart failure, doubt congestive heart failure based on the chest x-ray findings today. History of factor V Leyden mutation and history of DVT and pulmonary embolism, maintained on therapeutic dose of Lovenox. Chronic atrial fibrillation Coronary arteriosclerosis Dyslipidemia Recommendation: Continue present course of antibiotics including Rocephin and Zithromax Continue COVID-19 cocktail Patient is presently on room air, could be placed on oxygen if necessary or if she desaturates below 89 Resume home meds GI and DVT prophylaxis Check procalcitonin level Check inflammatory markers Continue bronchodilators/albuterol and Symbicort Will continue to follow Time with Patient: Greater than 30
[2023-09-17] MEDS: AZITHROMYCIN 500 MG in SODIUM CHLORIDE 0.9% 250 ML IVPB SCH (20:05)
[2023-09-17] MEDS: ATORVASTATIN 40 MG TAB PO SCH (20:11)
[2023-09-17] MEDS: SYMBICORT 160-4.5 MCG INHALER INHALATION SCH (20:12)
[2023-09-17] MEDS: ONDANSETRON 4 MG/2 ML VIAL IVP PRN (20:57)
[2023-09-17] MEDS: MELATONIN 5 MG TABLET PO SCH (20:58)
[2023-09-18 03:58] LABS: ALT 7 U/L (4-34); AST 16 U/L (14-36); African American GFR (CKD) 60 (>60 ml/min/1.73 sqM); Albumin 2.7 g/dL (3.5-5.0); Alkaline Phosphatase 56 U/L (38-126); Anion Gap 6 mmol/L; Blood Urea Nitrogen 20 mg/dL (7-17); Calcium 8.2 mg/dL (8.4-10.2); Carbon Dioxide 23 mmol/L (22-30); Chloride 109 mmol/L (98-107); Glucose 85 mg/dL (74-99); Non-African American GFR(CKD) 52 (>60 ml/min/1.73 sqM); Potassium 3.5 mmol/L (3.5-5.1); Sodium 138 mmol/L (137-145); Total Bilirubin 0.6 mg/dL (0.2-1.3); Total Protein 6.3 g/dL (6.3-8.2)
[2023-09-18 04:32] LABS: Anisocytosis Slight; HCT 39.6 % (34.0-46.0); HGB 12.2 gm/dL (11.4-16.0); Hypochromasia Slight; MCH 28.5 pg (25.0-35.0); MCHC 30.7 g/dL (31.0-37.0); Mean Platelet Volume 10.1; Platelet Count 469 k/uL (150-450); RBC 4.26 m/uL (3.80-5.40); WBC 5.1 k/uL (3.8-10.6)
[2023-09-18] MEDS: ERGOCALCIFEROL 1,250 MCG (50,000 IU) CAPSULE PO SCH (10:35)
--- NOTE | 2023-09-18 10:55 | P.PN ---
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 80 mg SQ twice daily, patient normally follows up with hematology regarding her factor V Leyden mutation. She is also known to have history of uterine cancer, history of chronic low back pain, patient is not able to ambulate much on her own. She does use a walker. Patient presented to the ER mostly with 2 weeks history of cough and congestion. Patient tested recently positive for COVID-19 infection by visiting physician, however she was not made aware of the test until today. In the meantime the patient has been developing worsening pulmonary symptoms mostly cough congestion, shortness of breath, and she had intermittent episodes of diarrhea. Chest x-ray on this admission showed evidence of right upper lobe pneumonia, patient was admitted, placed on Rocephin and Zithromax, and this consult was initiated. Patient is on room air, does not seem to be in any distress, chest x-ray clearly shows evidence of pneumonia/infiltrate in the right upper lobe, however patient does not qualify for remdesivir treatment for multiple reasons including the fact that she is on room air, and her symptoms go at least 2 weeks back. Based on the information given to me from the patient herself at any rate I am recommending that we continue the treatment with the same antibiotics, check procalcitonin level, check inflammatory markers, and treat accordingly Patient was reevaluated on 09/18/2023, she is in the observation unit, patient is doing well, feeling better today breathing easier, she does have intermittent cough and wheezing but overall patient feels she is much better today compared to yesterday. Remains on 2 L nasal cannula with O2 sats of 94%. CBC is relatively normal basic metabolic profile is normal and renal profile is normal procalcitonin level is borderline high 0.10 Objective - Vital Signs Vital signs: Vital Signs Temp 97.4 F L 09/18/23 07:39 Pulse 60 09/18/23 08:00 Resp 18 09/18/23 08:00 BP 124/71 09/18/23 07:39 Pulse Ox 94 L 09/18/23 07:39 FiO2 Intake & Output 09/17/23 09/18/23 09/18/23 18:59 06:59 18:59 Weight 72.575 kg Other: # Voids 1 - Exam General: Revealed 83-year-old female in no distress Head: Atraumatic normocephalic HEENT: Supple, no neck masses no JVD no stridor, throat and oropharyngeal congestion is noted. Lungs: Scattered crackles and rhonchi noted mostly on the right side. Chest Wall: No chest wall tenderness, symmetrical chest expansion Heart: iRRegular rate and rhythm, normal S1-S2, no S3 gallop, 2/6 systolic murmur throughout the precordium Back: Evidence of scoliosis Abdomen: Soft nontender no megaly no rebound no guarding Extremities: No clubbing edema or cyanosis Pulses: Good pulses bilaterally Skin: Normal skin color, normal turgor, no rashes Neurologic: Alert oriented x 3 no gross focal deficit Psychiatric: Normal mood affect and no mental status examination - Labs CBC & Chem 7: 09/18/23 03:26 09/18/23 03:26 Labs: Abnormal Lab Results - Last 24 Hours (Table) 09/17/23 09/18/23 09/18/23 Range/Units 06:01 03:26 03:26 MCHC 30.7 L (31.0-37.0) g/dL RDW 17.0 H (11.5-15.5) % Plt Count 469 H (150-450) k/uL Chloride 109 H (98-107) mmol/L BUN 20 H (7-17) mg/dL Calcium 8.2 L (8.4-10.2) mg/dL Albumin 2.7 L (3.5-5.0) g/dL Procalcitonin 0.10 H (0.02-0.09) ng/mL Microbiology - Last 24 Hours (Table) 09/16/23 22:43 Blood Culture - Preliminary Blood 09/16/23 22:27 Blood Culture - Preliminary Blood Assessment and Plan Assessment: Impression: Acute COVID-19 infection, possible COVID-19 pneumonia or superimposed community- acquired pneumonia. History of underlying COPD with acute exacerbation of COPD History of chronic diastolic congestive heart failure, doubt congestive heart failure based on the chest x-ray findings today. History of factor V Leyden mutation and history of DVT and pulmonary embolism, maintained on therapeutic dose of Lovenox. Chronic atrial fibrillation Coronary arteriosclerosis Dyslipidemia Recommendation: Continue present course of antibiotics including Rocephin and Zithromax Continue COVID-19 cocktail GI and DVT prophylaxis Continue bronchodilators/albuterol and Symbicort Will continue to follow Time with Patient: Less than 30
[2023-09-18] MEDS ORDERED: ZINC OXIDE 20% OINT 28.4 GM TUBE TOPICAL PRN (11:48)
[2023-09-18] MEDS: ZINC OXIDE PASTE (Z-GUARD) 1 APPLIC TOPICAL SCH (21:47)
--- NOTE | 2023-09-19 06:12 | P.PN ---
Subjective Progress Note Date: 09/18/23 HISTORY OF PRESENT ILLNESS: 83-year-old who is known for over 25 years with active medical history of coagulopathy with factor V Leiden deficiency with multi blood clot including PE and DVT has been on anticoagulation with Lovenox 80 mg twice a day for long time was seen Dr. Flores hematology also was seen cardiology and pulmonary before. Also patient has history of uterine cancer and history of benign colon growth postresection years ago who has severe problem with mobility and chronic lower back pain she is not able to ambulate and walk without help she walks sometimes with a walker. She has been seen in the visiting physician last few weeks apparently was seen on Saturday for being sick for few days with worsening congestion shortness of breath and cough they brought to her attention the possibility of COVID apparently test was done was never called back on Saturday she become Quite bit ill with worsening dyspnea and shortness of breath ended up calling 911 and brought to the emergency department by ambulance. With high suspicion for COVID-19 her culture came back positive, testing with white blood cell is normal normal hemoglobin hematocrit blood sugar was mildly elevated magnesium was a bit low her marker including proBNP troponin were negative. Chest x-ray shows bilateral infiltrate worse in the right side and the left side with slight pleural effusion as well and typical consolidation and pneumonia patient some signs and symptoms of congestive heart failure as well. She was started on Rocephin along with azithromycin and Flagyl steroid updraft treatment along with oxygen and supportive care admit to the hospital. 09/18/2023: Patient is doing slightly better still quite bit congested she is satting at 94 percentile on 2 L nasal cannula slightly bit easier to breathe still have slight stridor and wheezes. She is back on her anticoagulation with her home meds in general. Pulmonary seen patient is still agreed to keep her on Rocephin and azithromycin beside the cocktail for COVID-19. Bronchodilator with albuterol and Symbicort to be continued as well. Laboratory value with chemistry being stable and normal with no change in kidney function. CBC still does not show any anemia or leukocytosis. No culture is positive at this point. REVIEW OF SYSTEMS: CONSTITUTIONAL: Well-developed in mild respiratory distress.. Slightly bit confused EYES: No icterus sclerae, no conjunctivitis. EARS, NOSE, MOUTH, THROAT, and FACE: No sore throat, lymphadenopathy, carotid bruits or deformity. With more throat congestion. RESPIRATORY: Positive shortness of breath cough wheezing hypoxia. CARDIOVASCULAR: Positive PND orthopnea palpitation with mild irregularity and arrhythmia. GASTROINTESTINAL: Abdominal discomfort with diarrhea nausea no vomiting. GENITOURINARY: Negative for Hematuria or UTI, no kidney stones. Worsening incontinence. INTEGUMENT/BREAST: Negative for any muscular injury with mild osteoarthritis.. HEMATOLOGIC/LYMPHATIC: Negative for bleed or purpura. History of coagulopathy. MUSCULOSKELTAL: Generalized arthralgia and myalgia with worsening back pain. NEURLOGICAL: No LOC, Sz or syncope, blurred vision dizziness or abnormality.. Slight confusion. BEHAVIORAL/PSYCH: Negative. ENDOCRINE: Negative. PHYSICAL EXAMINATION: General Appearance: Alert, cooperative, in mild distress. Neck HEENT: Supple, no lymphadenopathy, no thyroid enlargement, no carotid bruits. Marked throat congestion as well. Lungs: Decreased breath sound bilaterally with fine rhonchi with crackles in the right base mostly more than the left side with inspiratory expiratory wheezes mild rhonchi across both lung marks. Chest Wall: Decreased expansion with deep inspiration no tenderness and no deformity was found on exam, no costochondral pain or discomfort. Heart: iRRegular rate and rhythm, S1, S2 positive S3 positive systolic murmur. Back: severe scoliosis with mild lower lumbar discomfort Abdomen: Soft with slight tenderness in the midepigastric area lower abdominal region with mild discomfort no rebound or rigidity. Extremities: Extremities normal, atraumatic, no cyanosis or edema. Pulses: 2+ and symmetric. Skin: Skin color, texture, tugor normal, no rashes or lesions. Neurologic: Alert oriented with slight confusion cranial nerves II to XII intact positive generalized weakness moving all 4 extremity not able to do balance and gait exam. ASSESSMENT AND PLAN: _Acute respiratory failure: Combination of bilateral pneumonia, congestive heart failure, COVID pneumonitis along with mild COPD exacerbation. _Acute COVID pneumonitis: This is so far her third time of having COVID-19 continue supportive care no remdesivir will be done at this point, or Paxlovid will continue supportive care with cocktail for COVID-19. _Bilateral bacterial pneumonitis: Continue azithromycin and Rocephin still on O2 updraft treatment and steroid. _Worsening shortness of breath and wheezes: Most likely slight combination of COPD/chronic bronchitis component continue steroid with Medrol 4 mg daily along with updraft treatment and Pulmicort. _Congestive heart failure with mild exacerbation with current illness, continue furosemide along with isosorbide mononitrate still on Coreg keep watching for any worsening shortness of breath or fluid overload. _Coagulopathy with factor V Leiden deficiency: Has been on Lovenox 80 mg twice a day for last 10 years patient had multiple blood clot including PE and DVT she is to continue her coagulation management. _History of polycythemia: Still stable continues watching her hemoglobin hematocrit on regular basis. Still seeing oncology. _Atrial fibrillation without rapid ventricular response: Has been on anticoagulation and Coreg continue medication. Pulse rate still running in the 70s and 80s. _Atherosclerotic heart disease was seen cardiology previously, will continue isosorbide, Coreg, aspirin along with losartan. _Hypertension: Resume losartan and Coreg along with hydralazine. _Hyperlipidemia: Has been on atorvastatin 40 mg daily. _Multiple drug allergy: Caution with any new medication she is going to be started on. Prognosis: Fair. Discussion: Patient seen pulmonary, shortness of breath stridor and wheezes is much better continue current management for now, keep watching patient for any worsening symptoms she is back on her anticoagulation with Lovenox 80 mg twice a day. Objective - Vital Signs Vital signs: Vital Signs Temp 97.9 F 09/18/23 02:20 Pulse 49 L 09/18/23 02:20 Resp 18 09/18/23 02:20 BP 126/75 09/18/23 02:20 Pulse Ox 93 L 09/18/23 02:20 FiO2 Intake & Output 09/17/23 09/17/23 09/18/23 06:59 18:59 06:59 Weight 72.575 kg Other: # Voids 1 - Labs CBC & Chem 7: 09/18/23 03:26 09/18/23 03:26 Labs: Abnormal Lab Results - Last 24 Hours (Table) 09/17/23 09/17/23 09/17/23 Range/Units 06:01 06:01 06:01 MCHC 30.5 L (31.0-37.0) g/dL RDW 16.6 H (11.5-15.5) % Plt Count 494 H (150-450) k/uL Lymphocytes # 0.6 L (1.0-4.8) k/uL Chloride 109 H (98-107) mmol/L Carbon Dioxide 20 L (22-30) mmol/L BUN 18 H (7-17) mg/dL Glucose 105 H (74-99) mg/dL Calcium 8.3 L (8.4-10.2) mg/dL Magnesium 1.3 L (1.6-2.3) mg/dL Albumin 3.0 L (3.5-5.0) g/dL Procalcitonin 0.10 H (0.02-0.09) ng/mL 09/18/23 09/18/23 Range/Units 03:26 03:26 MCHC 30.7 L (31.0-37.0) g/dL RDW 17.0 H (11.5-15.5) % Plt Count 469 H (150-450) k/uL Lymphocytes # (1.0-4.8) k/uL Chloride 109 H (98-107) mmol/L Carbon Dioxide (22-30) mmol/L BUN 20 H (7-17) mg/dL Glucose (74-99) mg/dL Calcium 8.2 L (8.4-10.2) mg/dL Magnesium (1.6-2.3) mg/dL Albumin 2.7 L (3.5-5.0) g/dL Procalcitonin (0.02-0.09) ng/mL Microbiology - Last 24 Hours (Table) 09/16/23 22:43 Blood Culture - Preliminary Blood 09/16/23 22:27 Blood Culture - Preliminary Blood
--- NOTE | 2023-09-19 08:14 | P.PN ---
Subjective Progress Note Date: 09/19/23 HISTORY OF PRESENT ILLNESS: 83-year-old who is known for over 25 years with active medical history of coagulopathy with factor V Leiden deficiency with multi blood clot including PE and DVT has been on anticoagulation with Lovenox 80 mg twice a day for long time was seen Dr. Flores hematology also was seen cardiology and pulmonary before. Also patient has history of uterine cancer and history of benign colon growth postresection years ago who has severe problem with mobility and chronic lower back pain she is not able to ambulate and walk without help she walks sometimes with a walker. She has been seen in the visiting physician last few weeks apparently was seen on Saturday for being sick for few days with worsening congestion shortness of breath and cough they brought to her attention the possibility of COVID apparently test was done was never called back on Saturday she become Quite bit ill with worsening dyspnea and shortness of breath ended up calling 911 and brought to the emergency department by ambulance. With high suspicion for COVID-19 her culture came back positive, testing with white blood cell is normal normal hemoglobin hematocrit blood sugar was mildly elevated magnesium was a bit low her marker including proBNP troponin were negative. Chest x-ray shows bilateral infiltrate worse in the right side and the left side with slight pleural effusion as well and typical consolidation and pneumonia patient some signs and symptoms of congestive heart failure as well. She was started on Rocephin along with azithromycin and Flagyl steroid updraft treatment along with oxygen and supportive care admit to the hospital. 09/18/2023: Patient is doing slightly better still quite bit congested she is satting at 94 percentile on 2 L nasal cannula slightly bit easier to breathe still have slight stridor and wheezes. She is back on her anticoagulation with her home meds in general. Pulmonary seen patient is still agreed to keep her on Rocephin and azithromycin beside the cocktail for COVID-19. Bronchodilator with albuterol and Symbicort to be continued as well. Laboratory value with chemistry being stable and normal with no change in kidney function. CBC still does not show any anemia or leukocytosis. No culture is positive at this point. 09/19/2023: Patient is laying in bed comfortable no major complication that I see. She is holding on to pocket has been having nausea without vomiting. Her vitals are stable no increased cough or worsening shortness of breath this point. She is remain on IV antibiotic for pneumonia and she is still on her cocktail for COVID-19. Oxygen level has been good, patient remain bedrest at when asked she said has not done physical therapy or walk in a while because of multiple fall. Will ask physical therapy for help also will ask social work associate to see if patient will be able to go home tomorrow if she is stable. And whether she is going to need any help at home or not. Also patient remain on metronidazole not understanding why no sign of C. diff icile she is having slight loose stool mostly from COVID enteritis will take her off medication today. REVIEW OF SYSTEMS: CONSTITUTIONAL: Well-developed in mild respiratory distress.. Slightly bit confused EYES: No icterus sclerae, no conjunctivitis. EARS, NOSE, MOUTH, THROAT, and FACE: No sore throat, lymphadenopathy, carotid bruits or deformity. With more throat congestion. RESPIRATORY: Positive shortness of breath cough wheezing hypoxia. CARDIOVASCULAR: Positive PND orthopnea palpitation with mild irregularity and arrhythmia. GASTROINTESTINAL: Abdominal discomfort with diarrhea nausea no vomiting. GENITOURINARY: Negative for Hematuria or UTI, no kidney stones. Worsening incontinence. INTEGUMENT/BREAST: Negative for any muscular injury with mild osteoarthritis.. HEMATOLOGIC/LYMPHATIC: Negative for bleed or purpura. History of coagulopathy. MUSCULOSKELTAL: Generalized arthralgia and myalgia with worsening back pain. NEURLOGICAL: No LOC, Sz or syncope, blurred vision dizziness or abnormality.. Slight confusion. BEHAVIORAL/PSYCH: Negative. ENDOCRINE: Negative. PHYSICAL EXAMINATION: General Appearance: Alert, cooperative, in mild distress. Neck HEENT: Supple, no lymphadenopathy, no thyroid enlargement, no carotid bruits. Marked throat congestion as well. Lungs: Decreased breath sound bilaterally with fine rhonchi with crackles in the right base mostly more than the left side with inspiratory expiratory wheezes mild rhonchi across both lung marks. Chest Wall: Decreased expansion with deep inspiration no tenderness and no deformity was found on exam, no costochondral pain or discomfort. Heart: iRRegular rate and rhythm, S1, S2 positive S3 positive systolic murmur. Back: severe scoliosis with mild lower lumbar discomfort Abdomen: Soft with slight tenderness in the midepigastric area lower abdominal region with mild discomfort no rebound or rigidity. Extremities: Extremities normal, atraumatic, no cyanosis or edema. Pulses: 2+ and symmetric. Skin: Skin color, texture, tugor normal, no rashes or lesions. Neurologic: Alert oriented with slight confusion cranial nerves II to XII intact positive generalized weakness moving all 4 extremity not able to do balance and gait exam. ASSESSMENT AND PLAN: _Acute respiratory failure: Combination of bilateral pneumonia, congestive heart failure, COVID pneumonitis along with mild COPD exacerbation. Much better on 2 L of oxygen and oxygen level has been good. _Acute COVID pneumonitis: This is so far her third time of having COVID-19 continue supportive care no remdesivir will be done at this point, or Paxlovid will continue supportive care with cocktail for COVID-19. Continue supportive care with multivitamin and steroid. _Bilateral bacterial pneumonitis: Continue azithromycin and Rocephin still on O2 updraft treatment and steroid. Azithromycin was stopped when she is on Flagyl and believe for pneumonia but will stop Flagyl. _Worsening shortness of breath and wheezes: Most likely slight combination of COPD/chronic bronchitis component continue steroid with Medrol 4 mg daily along with updraft treatment and Pulmicort. _Congestive heart failure with mild exacerbation with current illness, continue furosemide along with isosorbide mononitrate still on Coreg keep watching for any worsening shortness of breath or fluid overload. _Coagulopathy with factor V Leiden deficiency: Has been on Lovenox 80 mg twice a day for last 10 years patient had multiple blood clot including PE and DVT she is to continue her coagulation management. _History of polycythemia: Still stable continues watching her hemoglobin hematocrit on regular basis. Still seeing oncology. _Atrial fibrillation without rapid ventricular response: Has been on anticoagulation and Coreg continue medication. Pulse rate still running in the 70s and 80s. _Atherosclerotic heart disease was seen cardiology previously, will continue iso sorbide, Coreg, aspirin along with losartan. _Hypertension: Resume losartan and Coreg along with hydralazine. _Hyperlipidemia: Has been on atorvastatin 40 mg daily. _Multiple drug allergy: Caution with any new medication she is going to be started on. Debility: Patient has not ambulate or walk will ask for physical therapy help for now. Prognosis: Fair. Discussion: PT OT and social work associate to help patient and expected discharge possibly in the next 48 hours. Objective - Vital Signs Vital signs: Vital Signs Temp 97.6 F 09/18/23 17:45 Pulse 50 L 09/19/23 02:00 Resp 16 09/19/23 02:00 BP 109/68 09/19/23 02:00 Pulse Ox 96 09/19/23 02:00 FiO2 Intake & Output 09/18/23 09/18/23 09/19/23 06:59 18:59 06:59 Weight 72.575 kg Other: # Voids 1 1 # Bowel Movements 2 - Labs CBC & Chem 7: 09/18/23 03:26 09/18/23 03:26 Labs: Microbiology - Last 24 Hours (Table) 09/16/23 22:43 Blood Culture - Preliminary Blood 09/16/23 22:27 Blood Culture - Preliminary Blood
[2023-09-19] MEDS: MECLIZINE 12.5 MG TAB PO PRN (08:32)
[2023-09-19] MEDS: ONDANSETRON 4 MG/2 ML VIAL IVP PRN (12:03)
--- NOTE | 2023-09-19 13:20 | P.PN ---
Subjective Progress Note Date: 09/19/23 This is an 83-year-old female with history of multiple medical problems including history of hypercoagulable state with factor V Leyden deficiency, history of DVT and pulmonary embolism, maintained on Lovenox. 80 mg SQ twice daily, patient normally follows up with hematology regarding her factor V Leyden mutation. She is also known to have history of uterine cancer, history of chronic low back pain, patient is not able to ambulate much on her own. She does use a walker. Patient presented to the ER mostly with 2 weeks history of cough and congestion. Patient tested recently positive for COVID-19 infection by visiting physician, however she was not made aware of the test until today. In the meantime the patient has been developing worsening pulmonary symptoms mostly cough congestion, shortness of breath, and she had intermittent episodes of diarrhea. Chest x-ray on this admission showed evidence of right upper lobe pneumonia, patient was admitted, placed on Rocephin and Zithromax, and this consult was initiated. Patient is on room air, does not seem to be in any distress, chest x-ray clearly shows evidence of pneumonia/infiltrate in the right upper lobe, however patient does not qualify for remdesivir treatment for multiple reasons including the fact that she is on room air, and her symptoms go at least 2 weeks back. Based on the information given to me from the patient herself at any rate I am recommending that we continue the treatment with the same antibiotics, check procalcitonin level, check inflammatory markers, and treat accordingly Patient was reevaluated on 09/18/2023, she is in the observation unit, patient is doing well, feeling better today breathing easier, she does have intermittent cough and wheezing but overall patient feels she is much better today compared to yesterday. Remains on 2 L nasal cannula with O2 sats of 94%. CBC is relatively normal basic metabolic profile is normal and renal profile is normal procalcitonin level is borderline high 0.10 The patient is seen today September 19, 2023 in follow-up on the regular medical floor. She is currently resting in bed. Awake and alert in no acute distress. She has been having some issues with ongoing nausea. Ongoing diarrhea. She is maintaining good O2 saturations in the 90s on 2 L/min per nasal cannula. She has been afebrile. Hemodynamically stable. Blood cultures reveal no growth. No new labs today. She remains on ceftriaxone and completed azithromycin. She is continued on Symbicort, albuterol, vitamin supplements. Lovenox for anticoagulation. Objective - Vital Signs Vital signs: Vital Signs Temp 98.1 F 09/19/23 07:14 Pulse 62 09/19/23 07:14 Resp 19 09/19/23 07:14 BP 129/53 09/19/23 07:14 Pulse Ox 92 L 09/19/23 11:18 FiO2 Intake & Output 09/18/23 09/19/23 09/19/23 18:59 06:59 18:59 Other: Voiding Method Incontinent # Voids 1 2 # Bowel Movements 2 - Exam GENERAL EXAM: Alert, weak, 83-year-old female, on 2 L nasal cannula, comfortable in no apparent distress. HEAD: Normocephalic. EYES: Normal reaction of pupils, equal size. NOSE: Clear with pink turbinates. THROAT: No erythema or exudates. NECK: No masses, no JVD. CHEST: No chest wall deformity. LUNGS: Equal air entry with few scattered rhonchi. Diminished right base. CVS: S1 and S2 normal with no audible murmur, regular rhythm. ABDOMEN: No hepatosplenomegaly, normal bowel sounds, no guarding or rigidity. SPINE: No scoliosis or deformity SKIN: No rashes CENTRAL NERVOUS SYSTEM: No focal deficits, tone is normal in all 4 extremities. EXTREMITIES: There is no peripheral edema. No clubbing, no cyanosis. Peripheral pulses are intact. - Labs CBC & Chem 7: 09/18/23 03:26 09/18/23 03:26 Labs: Microbiology - Last 24 Hours (Table) 09/16/23 22:43 Blood Culture - Preliminary Blood 09/16/23 22:27 Blood Culture - Preliminary Blood Assessment and Plan Assessment: Acute COVID-19 infection, possible COVID-19 pneumonia or superimposed community- acquired pneumonia. Procalcitonin 0.10. Treated with antibiotics History of underlying COPD with acute exacerbation of COPD History of chronic diastolic congestive heart failure History of factor V Leyden mutation and history of DVT and pulmonary embolism, maintained on therapeutic dose of Lovenox. Chronic atrial fibrillation Coronary arteriosclerosis Dyslipidemia Plan: The patient was seen and evaluated Medications reviewed C. difficile screen pending Remains on antibiotics Continued on bronchodilators Therapeutic Lovenox Follow-up chest x-ray in a.m. We will continue to follow I have personally seen and examined the patient, performed the documentation and the assessment and plan as written. Number of minutes spent on the visit: 10.
[2023-09-19] MEDS: PROCHLORPERAZINE 10 MG TAB PO PRN (20:35)
--- NOTE | 2023-09-20 07:58 | XR ---
EXAMINATION TYPE: XR chest 1V portable DATE OF EXAM: 09/20/2023 COMPARISON: 09/17/2023 HISTORY: Cough TECHNIQUE: Single frontal view of the chest is obtained. FINDINGS: Bilateral infiltrate with tiny pleural effusion. No pneumothorax. Heart size mildly promin ent. Atherosclerotic change aorta. Diffuse osteopenia, arthropathy of the shoulder and postsurgical c hange on the left. Degenerative change of the spine. Elevated right hemidiaphragm. IMPRESSION: Bilateral infiltrates are stable.
--- NOTE | 2023-09-20 13:35 | P.PN ---
Subjective Progress Note Date: 09/20/23 This is an 83-year-old female with history of multiple medical problems including history of hypercoagulable state with factor V Leyden deficiency, history of DVT and pulmonary embolism, maintained on Lovenox. 80 mg SQ twice daily, patient normally follows up with hematology regarding her factor V Leyden mutation. She is also known to have history of uterine cancer, history of chronic low back pain, patient is not able to ambulate much on her own. She does use a walker. Patient presented to the ER mostly with 2 weeks history of cough and congestion. Patient tested recently positive for COVID-19 infection by visiting physician, however she was not made aware of the test until today. In the meantime the patient has been developing worsening pulmonary symptoms mostly cough congestion, shortness of breath, and she had intermittent episodes of diarrhea. Chest x-ray on this admission showed evidence of right upper lobe pneumonia, patient was admitted, placed on Rocephin and Zithromax, and this consult was initiated. Patient is on room air, does not seem to be in any distress, chest x-ray clearly shows evidence of pneumonia/infiltrate in the right upper lobe, however patient does not qualify for remdesivir treatment for multiple reasons including the fact that she is on room air, and her symptoms go at least 2 weeks back. Based on the information given to me from the patient herself at any rate I am recommending that we continue the treatment with the same antibiotics, check procalcitonin level, check inflammatory markers, and treat accordingly Patient was reevaluated on 09/18/2023, she is in the observation unit, patient is doing well, feeling better today breathing easier, she does have intermittent cough and wheezing but overall patient feels she is much better today compared to yesterday. Remains on 2 L nasal cannula with O2 sats of 94%. CBC is relatively normal basic metabolic profile is normal and renal profile is normal procalcitonin level is borderline high 0.10 The patient is seen today September 19, 2023 in follow-up on the regular medical floor. She is currently resting in bed. Awake and alert in no acute distress. She has been having some issues with ongoing nausea. Ongoing diarrhea. She is maintaining good O2 saturations in the 90s on 2 L/min per nasal cannula. She has been afebrile. Hemodynamically stable. Blood cultures reveal no growth. No new labs today. She remains on ceftriaxone and completed azithromycin. She is continued on Symbicort, albuterol, vitamin supplements. Lovenox for anticoagulation. The patient is seen today September 20, 2023 in follow-up on the regular medical floor. She is awake and alert in no acute distress. Resting comfortably in bed. Denies any worsening shortness of breath, cough or congestion. She is doing quite a bit better today. Not quite back to her baseline. X-ray reveals stable bilateral infiltrates. Blood cultures revealed no growth. No new labs today. She remains on ceftriaxone. She is continued on Symbicort, albuterol, vitamin supplements, Lovenox. Objective - Vital Signs Vital signs: Vital Signs Temp 97.9 F 09/20/23 07:38 Pulse 52 L 09/20/23 07:38 Resp 16 09/20/23 07:38 BP 117/54 09/20/23 12:38 Pulse Ox 93 L 09/20/23 08:53 FiO2 Intake & Output 09/19/23 09/20/23 09/20/23 18:59 06:59 18:59 Other: Voiding Method Incontinent External Catheter External Catheter # Voids 1 1 - Exam GENERAL EXAM: Alert, pleasant 83-year-old female, on 1 L nasal cannula, in no apparent distress. HEAD: Normocephalic. EYES: Normal reaction of pupils, equal size. NOSE: Clear with pink turbinates. THROAT: No erythema or exudates. NECK: No masses, no JVD. CHEST: No chest wall deformity. LUNGS: Equal air entry with few scattered rhonchi. Diminished bases. CVS: S1 and S2 normal with no audible murmur, regular rhythm. ABDOMEN: No hepatosplenomegaly, normal bowel sounds, no guarding or rigidity. SPINE: No scoliosis or deformity SKIN: No rashes CENTRAL NERVOUS SYSTEM: No focal deficits, tone is normal in all 4 extremities. EXTREMITIES: There is no peripheral edema. No clubbing, no cyanosis. Peripheral pulses are intact. - Labs CBC & Chem 7: 09/18/23 03:26 09/18/23 03:26 Labs: Microbiology - Last 24 Hours (Table) 09/16/23 22:43 Blood Culture - Preliminary Blood 09/16/23 22:27 Blood Culture - Preliminary Blood Assessment and Plan Assessment: Acute COVID-19 infection, possible COVID-19 pneumonia or superimposed community- acquired pneumonia. Procalcitonin 0.10. Treated with antibiotics History of underlying COPD with acute exacerbation of COPD History of chronic diastolic congestive heart failure History of factor V Leyden mutation and history of DVT and pulmonary embolism, maintained on therapeutic dose of Lovenox. Chronic atrial fibrillation Coronary arteriosclerosis Dyslipidemia Plan: The patient was seen and evaluated Chest x-ray and medications reviewed Continue the current treatment plan Titrate down the FiO2 as tolerated Increase her activity as tolerated Probable discharge in the a.m. I have personally seen and examined the patient, performed the documentation and the assessment and plan as written. Number of minutes spent on the visit: 10.
--- NOTE | 2023-09-20 16:20 | P.PN ---
Subjective Progress Note Date: 09/20/23 HISTORY OF PRESENT ILLNESS: 83-year-old who is known for over 25 years with active medical history of coagulopathy with factor V Leiden deficiency with multi blood clot including PE and DVT has been on anticoagulation with Lovenox 80 mg twice a day for long time was seen Dr. Flores hematology also was seen cardiology and pulmonary before. Also patient has history of uterine cancer and history of benign colon growth postresection years ago who has severe problem with mobility and chronic lower back pain she is not able to ambulate and walk without help she walks sometimes with a walker. She has been seen in the visiting physician last few weeks apparently was seen on Saturday for being sick for few days with worsening congestion shortness of breath and cough they brought to her attention the possibility of COVID apparently test was done was never called back on Saturday she become Quite bit ill with worsening dyspnea and shortness of breath ended up calling 911 and brought to the emergency department by ambulance. With high suspicion for COVID-19 her culture came back positive, testing with white blood cell is normal normal hemoglobin hematocrit blood sugar was mildly elevated magnesium was a bit low her marker including proBNP troponin were negative. Chest x-ray shows bilateral infiltrate worse in the right side and the left side with slight pleural effusion as well and typical consolidation and pneumonia patient some signs and symptoms of congestive heart failure as well. She was started on Rocephin along with azithromycin and Flagyl steroid updraft treatment along with oxygen and supportive care admit to the hospital. 09/18/2023: Patient is doing slightly better still quite bit congested she is satting at 94 percentile on 2 L nasal cannula slightly bit easier to breathe still have slight stridor and wheezes. She is back on her anticoagulation with her home meds in general. Pulmonary seen patient is still agreed to keep her on Rocephin and azithromycin beside the cocktail for COVID-19. Bronchodilator with albuterol and Symbicort to be continued as well. Laboratory value with chemistry being stable and normal with no change in kidney function. CBC still does not show any anemia or leukocytosis. No culture is positive at this point. 09/19/2023: Patient is laying in bed comfortable no major complication that I see. She is holding on to pocket has been having nausea without vomiting. Her vitals are stable no increased cough or worsening shortness of breath this point. She is remain on IV antibiotic for pneumonia and she is still on her cocktail for COVID-19. Oxygen level has been good, patient remain bedrest at when asked she said has not done physical therapy or walk in a while because of multiple fall. Will ask physical therapy for help also will ask social research assistant to see if patient will be able to go home tomorrow if she is stable. And whether she is going to need any help at home or not. Also patient remain on metronidazole not understanding why no sign of C. diff icile she is having slight loose stool mostly from COVID enteritis will take her off medication today. 09/20/2023: She is much better today had significant less congestion than before, her intake still minimal at this point. Has not done much physical therapy, social research assistant is contacting family to see if patient need to go to SNF versus home on home care. Apparently patient has not walk in quite a long time and has been managing in bed with extra help at home. We adjust medication at this time watch for any change patient is a lot less congested than before, chest x-ray was ordered today still showing bilateral infiltrate stable as before probably having to treat patient for secondary pneumonitis with Rocephin and azithromycin for now still cannot be appropriate when she goes home she can be probably on doxycycline. REVIEW OF SYSTEMS: CONSTITUTIONAL: Well-developed in mild respiratory distress.. Slightly bit confused EYES: No icterus sclerae, no conjunctivitis. EARS, NOSE, MOUTH, THROAT, and FACE: No sore throat, lymphadenopathy, carotid bruits or deformity. With more throat congestion. RESPIRATORY: Positive shortness of breath cough wheezing hypoxia. CARDIOVASCULAR: Positive PND orthopnea palpitation with mild irregularity and arrhythmia. GASTROINTESTINAL: Abdominal discomfort with diarrhea nausea no vomiting. GENITOURINARY: Negative for Hematuria or UTI, no kidney stones. Worsening incontinence. INTEGUMENT/BREAST: Negative for any muscular injury with mild osteoarthritis.. HEMATOLOGIC/LYMPHATIC: Negative for bleed or purpura. History of coagulopathy. MUSCULOSKELTAL: Generalized arthralgia and myalgia with worsening back pain. NEURLOGICAL: No LOC, Sz or syncope, blurred vision dizziness or abnormality.. Slight confusion. BEHAVIORAL/PSYCH: Negative. ENDOCRINE: Negative. PHYSICAL EXAMINATION: General Appearance: Alert, cooperative, in mild distress. Neck HEENT: Supple, no lymphadenopathy, no thyroid enlargement, no carotid bruits. Marked throat congestion as well. Lungs: Decreased breath sound bilaterally with fine rhonchi with crackles in the right base mostly more than the left side with inspiratory expiratory wheezes mild rhonchi across both lung marks. Chest Wall: Decreased expansion with deep inspiration no tenderness and no deformity was found on exam, no costochondral pain or discomfort. Heart: iRRegular rate and rhythm, S1, S2 positive S3 positive systolic murmur. Back: severe scoliosis with mild lower lumbar discomfort Abdomen: Soft with slight tenderness in the midepigastric area lower abdominal region with mild discomfort no rebound or rigidity. Extremities: Extremities normal, atraumatic, no cyanosis or edema. Pulses: 2+ and symmetric. Skin: Skin color, texture, tugor normal, no rashes or lesions. Neurologic: Alert oriented with slight confusion cranial nerves II to XII intact positive generalized weakness moving all 4 extremity not able to do balance and gait exam. ASSESSMENT AND PLAN: _Acute respiratory failure: Combination of bilateral pneumonia, congestive heart failure, COVID pneumonitis along with mild COPD exacerbation. Much better on 2 L of oxygen and oxygen level has been good. _Acute COVID pneumonitis: Continue supportive care no antiviral medication needed at this point. _Bilateral bacterial pneumonitis: Her procalcitonin was elevated to indicated treatment for community-acquired pneumonia more in patient's case like aspiration pneumonia as well has been on azithromycin and Rocephin patient can be discharged on doxycycline when she is ready. _Atrial fibrillation without rapid ventricular response: Pulse rate is much better continue current management still on anticoagulation. _Worsening shortness of breath and wheezes: Most likely slight combination of COPD/chronic bronchitis component continue steroid with Medrol 4 mg daily along with updraft treatment and Pulmicort. _Congestive heart failure with mild exacerbation with current illness, continue furosemide along with isosorbide mononitrate still on Coreg keep watching for any worsening shortness of breath or fluid overload. _Coagulopathy with factor V Leiden deficiency: Has been on Lovenox 80 mg twice a day for last 10 years patient had multiple blood clot including PE and DVT she is to continue her coagulation management. _Altered mental status: Most likely secondary to hypoxia and infection her mental status has cleared some still not totally back to normal. _Atherosclerotic heart disease was seen cardiology previously, will continue isosorbide, Coreg, aspirin along with losartan. _Hypertension: Resume losartan and Coreg along with hydralazine. _Hyperlipidemia: Has been on atorvastatin 40 mg daily. _Multiple drug allergy: Caution with any new medication she is going to be started on. Debility: Patient has not ambulate or walk will ask for physical therapy help for now. Prognosis: Fair. 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 Objective - Vital Signs Vital signs: Vital Signs Temp 97.2 F L 09/20/23 00:11 Pulse 63 09/20/23 00:11 Resp 16 09/20/23 00:11 BP 112/60 09/20/23 00:11 Pulse Ox 91 L 09/20/23 00:11 FiO2 Intake & Output 09/19/23 09/19/23 09/20/23 06:59 18:59 06:59 Other: Voiding Method Incontinent External Catheter # Voids 2 1 1 - Labs CBC & Chem 7: 09/18/23 03:26 09/18/23 03:26 Labs: Microbiology - Last 24 Hours (Table) 09/16/23 22:43 Blood Culture - Preliminary Blood 09/16/23 22:27 Blood Culture - Preliminary Blood
[2023-09-21] MEDS: FUROSEMIDE 10 MG/ML 4 ML VIAL IV STA (09:43)
--- NOTE | 2023-09-21 12:46 | P.PN ---
Subjective Progress Note Date: 09/21/23 Principal diagnosis: Acute COVID-19 infection with possible COVID-19 pneumonia or community-acquired pneumonia This is an 83-year-old female with history of multiple medical problems including history of hypercoagulable state with factor V Leyden deficiency, history of DVT and pulmonary embolism, maintained on Lovenox. 80 mg SQ twice daily, patient normally follows up with hematology regarding her factor V Leyden mutation. She is also known to have history of uterine cancer, history of chronic low back pain, patient is not able to ambulate much on her own. She does use a walker. Patient presented to the ER mostly with 2 weeks history of cough and congestion. Patient tested recently positive for COVID-19 infection by visiting physician, however she was not made aware of the test until today. In the meantime the patient has been developing worsening pulmonary symptoms mostly cough congestion, shortness of breath, and she had intermittent episodes of diarrhea. Chest x-ray on this admission showed evidence of right upper lobe pneumonia, patient was admitted, placed on Rocephin and Zithromax, and this consult was initiated. Patient is on room air, does not seem to be in any distress, chest x-ray clearly shows evidence of pneumonia/infiltrate in the right upper lobe, however patient does not qualify for remdesivir treatment for multiple reasons including the fact that she is on room air, and her symptoms go at least 2 weeks back. Based on the information given to me from the patient herself at any rate I am recommending that we continue the treatment with the same antibiotics, check procalcitonin level, check inflammatory markers, and treat accordingly Patient was reevaluated on 09/18/2023, she is in the observation unit, patient is doing well, feeling better today breathing easier, she does have intermittent cough and wheezing but overall patient feels she is much better today compared to yesterday. Remains on 2 L nasal cannula with O2 sats of 94%. CBC is relatively normal basic metabolic profile is normal and renal profile is normal procalcitonin level is borderline high 0.10 The patient is seen today September 19, 2023 in follow-up on the regular medical floor. She is currently resting in bed. Awake and alert in no acute distress. She has been having some issues with ongoing nausea. Ongoing diarrhea. She is maintaining good O2 saturations in the 90s on 2 L/min per nasal cannula. She has been afebrile. Hemodynamically stable. Blood cultures reveal no growth. No new labs today. She remains on ceftriaxone and completed azithromycin. She is continued on Symbicort, albuterol, vitamin supplements. Lovenox for anticoagulation. The patient is seen today September 20, 2023 in follow-up on the regular medical floor. She is awake and alert in no acute distress. Resting comfortably in bed. Denies any worsening shortness of breath, cough or congestion. She is doing quite a bit better today. Not quite back to her baseline. X-ray reveals stable bilateral infiltrates. Blood cultures revealed no growth. No new labs today. She remains on ceftriaxone. She is continued on Symbicort, albuterol, vitamin supplements, Lovenox. Patient was evaluated today on 09/21/2023, patient is doing well, feeling better, not back to her baseline but nonetheless she is feeling better on physical examination to continues to have some crackles. Today I recommended 1 dose of Lasix to be given based on the abnormal physical findings. Temp is 97 9 blood pressure 114/69 patient is on 1 L nasal cannula O2 sats is 94%. WBC count is 5.1 hemoglobin is 12.2 electrolytes are normal renal profile is normal, procalcitonin level is 0.10. Antibiotics have been discontinued. Objective - Vital Signs Vital signs: Vital Signs Temp 97.9 F 09/21/23 12:22 Pulse 52 L 09/21/23 12:22 Resp 18 09/21/23 12:22 BP 114/69 09/21/23 12:22 Pulse Ox 94 L 09/21/23 08:00 FiO2 Intake & Output 09/20/23 09/21/23 09/21/23 18:59 06:59 18:59 Other: Voiding Method External Catheter External Catheter Diaper External Catheter # Voids 350 # Bowel Movements 1 1 - Exam General: Revealed 83-year-old female in no distress, on 2 L nasal cannula Head: Atraumatic normocephalic HEENT: Supple, no neck masses no JVD no stridor, throat and oropharyngeal congestion is noted. Lungs: S crackles at the bases noted. Chest Wall: No chest wall tenderness, symmetrical chest expansion Heart: iRRegular rate and rhythm, normal S1-S2, no S3 gallop, 2/6 systolic murmur throughout the precordium Back: Evidence of scoliosis Abdomen: Soft nontender no megaly no rebound no guarding Extremities: No clubbing edema or cyanosis Pulses: Good pulses bilaterally Skin: Normal skin color, normal turgor, no rashes Neurologic: Alert oriented x 3 no gross focal deficit Psychiatric: Normal mood affect and no mental status examination - Labs CBC & Chem 7: 09/18/23 03:26 09/18/23 03:26 Assessment and Plan Assessment: Impression: Acute COVID-19 infection, possible COVID-19 pneumonia History of underlying COPD with acute exacerbation of COPD History of chronic diastolic congestive heart failure, doubt congestive heart failure based on the chest x-ray findings today. History of factor V Leyden mutation and history of DVT and pulmonary embolism, maintained on therapeutic dose of Lovenox. Chronic atrial fibrillation Coronary arteriosclerosis Dyslipidemia Recommendation: Patient is now off antibiotics. Continue COVID-19 cocktail GI and DVT prophylaxis Gentle diuresis. Consider discharge planning once cleared by the admitting physician. Continue bronchodilators/albuterol and Symbicort Time with Patient: Less than 30
--- NOTE | 2023-09-21 18:02 | P.PN ---
Subjective Progress Note Date: 09/21/23 83-year-old female with history of multiple medical problems including history of hypercoagulable state with factor V Leyden deficiency, history of DVT and pulmonary embolism, maintained on Lovenox. 80 mg SQ twice daily, patient normally follows up with hematology regarding her factor V Leyden mutation. She is also known to have history of uterine cancer, history of chronic low back pain, patient is not able to ambulate much on her own. She does use a walker. Patient presented to the ER mostly with 2 weeks history of cough and congestion. Patient tested recently positive for COVID-19 infection by visiting physician, however she was not made aware of the test until today. In the meantime the patient has been developing worsening pulmonary symptoms mostly cough congestion, shortness of breath, and she had intermittent episodes of diarrhea. Chest x-ray on this admission showed evidence of right upper lobe pneumonia, patient was admitted, placed on Rocephin and Zithromax, and this consult was initiated. Patient is on room air, does not seem to be in any distress, chest x-ray clearly shows evidence of pneumonia/infiltrate in the right upper lobe, however patient does not qualify for remdesivir treatment for multiple reasons including the fact that she is on room air, and her symptoms go at least 2 weeks back. Based on the information given to me from the patient herself at any rate I am recommending that we continue the treatment with the same antibiotics, check procalcitonin level, check inflammatory markers, and treat accordingly Objective - Vital Signs Vital signs: Vital Signs Temp 97.5 F L 09/21/23 08:00 Pulse 58 L 09/21/23 08:00 Resp 17 09/21/23 08:00 BP 114/60 09/21/23 08:00 Pulse Ox 94 L 09/21/23 08:00 FiO2 Intake & Output 09/20/23 09/21/23 09/21/23 18:59 06:59 18:59 Other: Voiding Method External Catheter External Catheter Diaper External Catheter # Voids 350 # Bowel Movements 1 1 - Exam General: Revealed 83-year-old female in no distress, on 2 L nasal cannula Head: Atraumatic normocephalic HEENT: Supple, no neck masses no JVD no stridor, throat and oropharyngeal congestion is noted. Lungs: S crackles at the bases noted. Heart: iRRegular rate and rhythm, normal S1-S2, no S3 gallop, 2/6 systolic murmur throughout the precordium Back: Evidence of scoliosis Abdomen: Soft nontender no megaly no rebound no guarding Extremities: No clubbing edema or cyanosis Neurologic: Alert oriented x 3 no gross focal deficit Psychiatric: Normal mood affect and no mental status examination - Labs CBC & Chem 7: 09/18/23 03:26 09/18/23 03:26 Assessment and Plan Assessment: Acute COVID-19 infection, possible COVID-19 pneumonia History of underlying COPD with acute exacerbation of COPD History of chronic diastolic congestive heart failure, doubt congestive heart failure based on the chest x-ray findings today. History of factor V Leyden mutation and history of DVT and pulmonary embolism, maintained on therapeutic dose of Lovenox. Chronic atrial fibrillation Coronary arteriosclerosis Dyslipidemia --Patient has completed antibiotic therapy; remains on COVID-19 vitamin cocktail -Plan to continue with current management -Discharge when cleared by pulmonary service --Plan is for patient to return home with home health care
[2023-09-22 08:22] VITALS: RESP 17
--- NOTE | 2023-09-22 14:28 | P.PN ---
Subjective Progress Note Date: 09/22/23 Principal diagnosis: Acute COVID-19 infection with possible COVID-19 pneumonia or community-acquired pneumonia This is an 83-year-old female with history of multiple medical problems including history of hypercoagulable state with factor V Leyden deficiency, history of DVT and pulmonary embolism, maintained on Lovenox. 80 mg SQ twice daily, patient normally follows up with hematology regarding her factor V Leyden mutation. She is also known to have history of uterine cancer, history of chronic low back pain, patient is not able to ambulate much on her own. She does use a walker. Patient presented to the ER mostly with 2 weeks history of cough and congestion. Patient tested recently positive for COVID-19 infection by visiting physician, however she was not made aware of the test until today. In the meantime the patient has been developing worsening pulmonary symptoms mostly cough congestion, shortness of breath, and she had intermittent episodes of diarrhea. Chest x-ray on this admission showed evidence of right upper lobe pneumonia, patient was admitted, placed on Rocephin and Zithromax, and this consult was initiated. Patient is on room air, does not seem to be in any distress, chest x-ray clearly shows evidence of pneumonia/infiltrate in the right upper lobe, however patient does not qualify for remdesivir treatment for multiple reasons including the fact that she is on room air, and her symptoms go at least 2 weeks back. Based on the information given to me from the patient herself at any rate I am recommending that we continue the treatment with the same antibiotics, check procalcitonin level, check inflammatory markers, and treat accordingly Patient was reevaluated on 09/18/2023, she is in the observation unit, patient is doing well, feeling better today breathing easier, she does have intermittent cough and wheezing but overall patient feels she is much better today compared to yesterday. Remains on 2 L nasal cannula with O2 sats of 94%. CBC is relatively normal basic metabolic profile is normal and renal profile is normal procalcitonin level is borderline high 0.10 The patient is seen today September 19, 2023 in follow-up on the regular medical floor. She is currently resting in bed. Awake and alert in no acute distress. She has been having some issues with ongoing nausea. Ongoing diarrhea. She is maintaining good O2 saturations in the 90s on 2 L/min per nasal cannula. She has been afebrile. Hemodynamically stable. Blood cultures reveal no growth. No new labs today. She remains on ceftriaxone and completed azithromycin. She is continued on Symbicort, albuterol, vitamin supplements. Lovenox for anticoagulation. The patient is seen today September 20, 2023 in follow-up on the regular medical floor. She is awake and alert in no acute distress. Resting comfortably in bed. Denies any worsening shortness of breath, cough or congestion. She is doing quite a bit better today. Not quite back to her baseline. X-ray reveals stable bilateral infiltrates. Blood cultures revealed no growth. No new labs today. She remains on ceftriaxone. She is continued on Symbicort, albuterol, vitamin supplements, Lovenox. Patient was evaluated today on 09/21/2023, patient is doing well, feeling better, not back to her baseline but nonetheless she is feeling better on physical examination to continues to have some crackles. Today I recommended 1 dose of Lasix to be given based on the abnormal physical findings. Temp is 97 9 blood pressure 114/69 patient is on 1 L nasal cannula O2 sats is 94%. WBC count is 5.1 hemoglobin is 12.2 electrolytes are normal renal profile is normal, procalcitonin level is 0.10. Antibiotics have been discontinued. Patient was evaluated today on 09/22/2023, patient continues to do well, hardly any pulmonary symptoms today, no cough no wheezing no shortness of breath. Remains on 1 L nasal cannula with O2 sats of 93 to 96%. Blood pressure is 109/66, patient is not in any distress. Objective - Vital Signs Vital signs: Vital Signs Temp 97.7 F 09/22/23 07:58 Pulse 55 L 09/22/23 12:41 Resp 17 09/22/23 07:58 BP 109/66 09/22/23 12:41 Pulse Ox 93 L 09/22/23 07:58 FiO2 Intake & Output 09/21/23 09/22/23 09/22/23 18:59 06:59 18:59 Output Total 250 Balance -250 Output: Urine 250 Other: Voiding Method Diaper External Catheter External Catheter External Catheter # Bowel Movements 1 1 - Exam General: Revealed 83-year-old female in no distress, on 1 L nasal cannula Head: Atraumatic normocephalic HEENT: Supple, no neck masses no JVD no stridor, throat and oropharyngeal congestion is noted. Lungs: Clear bilaterally no rhonchi no wheezes Chest Wall: No chest wall tenderness, symmetrical chest expansion Heart: iRRegular rate and rhythm, normal S1-S2, no S3 gallop, 2/6 systolic murmur throughout the precordium Back: Evidence of scoliosis Abdomen: Soft nontender no megaly no rebound no guarding Extremities: No clubbing edema or cyanosis Pulses: Good pulses bilaterally Skin: Normal skin color, normal turgor, no rashes Neurologic: Alert oriented x 3 no gross focal deficit Psychiatric: Normal mood affect and no mental status examination - Labs CBC & Chem 7: 09/18/23 03:26 09/18/23 03:26 Labs: Microbiology - Last 24 Hours (Table) 09/16/23 22:43 Blood Culture - Final Blood 09/16/23 22:27 Blood Culture - Final Blood Assessment and Plan Assessment: Impression: Acute COVID-19 infection, possible COVID-19 pneumonia History of underlying COPD with acute exacerbation of COPD History of chronic diastolic congestive heart failure, doubt congestive heart failure, on diuretics History of factor V Leyden mutation and history of DVT and pulmonary embolism, maintained on therapeutic dose of Lovenox. Chronic atrial fibrillation Coronary arteriosclerosis Dyslipidemia Recommendation: Continue COVID-19 cocktail GI and DVT prophylaxis Gentle diuresis. Consider discharge planning in the next 24 hours. Continue bronchodilators/albuterol and Symbicort Will clear the patient for discharge Pulmonary will sign off and see as needed Time with Patient: Less than 30
[2023-09-22 15:38] VITALS: BP 93/56; PULSE 49; TEMP 97.5
== END 2023-09-22 16:05 | disposition home health service (06) | DRG 177 ==
LOC: EC 19:43 → 4SSUR 22:12 → 1SOBS 09-17 10:08 → 4SSUR 09-18 11:15
PROVIDERS: ADMIT Internal Medicine Geriatric Medicine; ATTEND Internal Medicine Geriatric Medicine
DX: U07.1 COVID-19 (principal); J12.82 Pneumonia due to coronavirus disease 2019; J96.01 Acute respiratory failure with hypoxia; J15.9 Unspecified bacterial pneumonia; I48.20 Chronic atrial fibrillation, unspecified; A08.39 Other viral enteritis; I50.32 Chronic diastolic (congestive) heart failure; J44.1 Chronic obstructive pulmonary disease with (acute) exacerbation; J44.0 Chronic obstructive pulmonary disease with (acute) lower respiratory infection; D68.51 Activated protein C resistance; I11.0 Hypertensive heart disease with heart failure; Z28.310 Unvaccinated for COVID-19; E78.5 Hyperlipidemia, unspecified; I25.10 Atherosclerotic heart disease of native coronary artery without angina pectoris; R29.6 Repeated falls; D75.1 Secondary polycythemia; G89.29 Other chronic pain; M54.50 Low back pain, unspecified; R32 Unspecified urinary incontinence; Z79.1 Long term (current) use of non-steroidal anti-inflammatories (NSAID); Z79.899 Other long term (current) drug therapy; Z85.6 Personal history of leukemia; Z86.718 Personal history of other venous thrombosis and embolism; Z85.42 Personal history of malignant neoplasm of other parts of uterus; Z86.711 Personal history of pulmonary embolism; Z88.8 Allergy status to other drugs, medicaments and biological substances; Z88.6 Allergy status to analgesic agent; Z88.1 Allergy status to other antibiotic agents; Z88.5 Allergy status to narcotic agent
CPT/HCPCS: 36415; 71045; 71046; 80053; 83690; 83735; 83880; 84100; 84145; 84484; 85025; 85027; 87040; 87636; 93005; 94640; 94760; 96365; 96366; 96368; 96372; 96375; 99285